=== PATIENT | female | born 1990 | race Caucasian/White ===

== ENCOUNTER → 2019-09-13 | Outpatient (CLI) | payer MEDICAID ==
--- NOTE | 2019-09-13 12:12 | US ---
EXAMINATION TYPE: US abdomen limited DATE OF EXAM: 09/13/2019 COMPARISON: NONE CLINICAL HISTORY: 29-year-old female K43.9 ventral hernia without obstruction or gangrene. TECHNIQUE: Targeted ultrasound examination at the patient's supraumbilical palpable site. FINDINGS: EXAM MEASUREMENTS: Bundle Sorter notes: Area seen disrupting abdominal wall muscle, superior and just to the right of the umbilicus measuring 2.5 x 2.2 x 0.9 cm, Neck = 0.6 cm. The echotexture is the same as the subcutaneou s adipose. IMPRESSION: A 2.5 x 2.2 x 0.9 cm ventral abdominal wall, omental fat-containing supraumbilical hernia with a narr ow, 6 mm wide neck.
== END | disposition home or self-care (01) ==
LOC: RADUSWWP 08:00
PROVIDERS: ATTEND Family Medicine
DX: K43.9 Ventral hernia without obstruction or gangrene (principal); K42.9 Umbilical hernia without obstruction or gangrene
CPT/HCPCS: 76705

== ENCOUNTER → 2019-09-15 | Outpatient (CLI) | payer MEDICAID ==
--- NOTE | 2019-09-15 12:33 | EST ---
EXERCISE STRESS DATE OF SERVICE: 09/15/2019 AGE: 29 SEX: Female HT: 64" WT: 156 pounds PROTOCOL: Jamel STAGE: IV DURATION OF EXERCISE: 10 minutes 20 seconds HEART RATE REST: 85 BLOOD PRESSURE REST: 105/80 MAXIMUM HEART RATE ACHIEVED: 180 MAXIMUM BLOOD PRESSURE: 144/70 85% MPHR: 163 100% MPHR: 192 METS: 11.9 INDICATIONS: History of syncope. CLINICAL INFORMATION: Baseline heart rate is 85 beats per minute. Baseline blood pressure 105/80 mmHg. Baseline 12-lead ECG shows normal sinus rhythm with normal cardiac intervals. Early repolarization abnormality. The patient exercised on Jamel protocol for 10 minutes 10 seconds achieving a peak heart rate of 180 beats per minute. Normal blood pressure response to exercise. There was no ECG evidence for ischemia. No arrhythmias were noted. IMPRESSION: Good exercise capacity. No ECG evidence for ischemia. No arrhythmias. MMODL / IJN: [id number] /
--- NOTE | 2019-09-15 13:01 | ECHOF ---
Referral Reason:R55 syncope MEASUREMENTS -------- HEIGHT: 162.6 cm WEIGHT: 70.8 kg BP: RVIDd: 2.1 cm (< 3.3) IVSd: 0.8 cm (0.6 - 1.1) LVIDd: 3.4 cm (3.9 - 5.3) LVPWd: 0.9 cm (0.6 - 1.1) IVSs: 1.1 cm LVIDs: 2.3 cm LVPWs: 1.5 cm LAESV Index (A-L): 10.05 ml/m Ao Diam: 2.8 cm (2.0 - 3.7) AV Cusp: 1.5 cm (1.5 - 2.6) LA Diam: 2.3 cm (2.7 - 3.8) MV EXCURSION: 13.536 mm (> 18.000) MV EF SLOPE: 52 mm/s (70 - 150) EPSS: 0.7 cm MV E Filiberto: 0.68 m/s MV DecT: 177 ms MV A Filiberto: 0.62 m/s MV E/A Ratio: 1.09 AR PHT: 366 ms RAP: 5.00 mmHg RVSP: 16.44 mmHg TAPSE: 21.87 mm FINDINGS -------- Sinus rhythm. This was a technically good study. The left ventricular size is normal. Left ventricular wall thickness is normal. Overall left vent ricular systolic function is normal with, an EF between 55 - 60 %. The diastolic filling pattern is normal for the age of the patient 6.40. The right ventricle is normal in size. The left atrial size is normal. Normal LA size by volume 22+/-6 ml/m2. The right atrial size is normal. The aortic valve is trileaflet and appears structurally normal. There is mild aortic regurgitation. The mitral valve is normal. There is trace mitral regurgitation. Trace tricuspid regurgitation present. Right ventricular systolic pressure is normal at < 35 mmHg. There is no pulmonic regurgitation present. The aortic root size is normal. Normal inferior vena cava with normal inspiratory collapse consistent with estimated right atrial pre ssure of 5 mmHg. There is no pericardial effusion. CONCLUSIONS -------- 1. Sinus rhythm. 2. This was a technically good study. 3. The left ventricular size is normal. 4. Left ventricular wall thickness is normal. 5. Overall left ventricular systolic function is normal with, an EF between 55 - 60 %. 6. The diastolic filling pattern is normal for the age of the patient 6.40 7. The right ventricle is normal in size. 8. The left atrial size is normal. 9. Normal LA size by volume 22+/-6 ml/m2. 10. The right atrial size is normal. 11. The aortic valve is trileaflet and appears structurally normal. 12. There is mild aortic regurgitation. 13. The mitral valve is normal. 14. There is trace mitral regurgitation. 15. Trace tricuspid regurgitation present. 16. Right ventricular systolic pressure is normal at < 35 mmHg. 17. There is no pulmonic regurgitation present. 18. The aortic root size is normal. 19. Normal inferior vena cava with normal inspiratory collapse consistent with estimated right atrial pressure of 5 mmHg. 20. There is no pericardial effusion. DAIRY PROCESSING EQUIPMENT OPERATOR: Bharati Knox RDCS
== END | disposition home or self-care (01) ==
LOC: RADNMMAIN 10:54
PROVIDERS: ATTEND Internal Medicine Interventional Cardiology
DX: I35.1 Nonrheumatic aortic (valve) insufficiency (principal); I49.1 Atrial premature depolarization; I49.3 Ventricular premature depolarization; R55 Syncope and collapse
CPT/HCPCS: 93017; 93225; 93226; 93306

== ENCOUNTER → 2020-01-17 | Day surgery (SDC) | payer MEDICAID ==
[2020-01-12 13:29] VITALS: BMI 26.7
[~2020-01-17] MED LIST: ACETAMINOPHEN TAB 500 MG TAB PO ONE; BUPIVACAINE (PF) 0.25% 30 ML VIAL SQ ONE; DEXAMETHASONE SOD PHOSPHATE 10 MG/ML 1 ML VIAL IV ONE; GLYCOPYRROLATE 0.2 MG/ML 2 ML VIAL ONE; HEPARIN SODIUM,PORCINE 5,000 UNIT/ML 1 ML VIAL SQ ONE; HYDROcodone/APAP 5-325MG 1 EACH TAB PO PRN; HYDROmorphone 0.5 MG/0.5 ML SYRINGE IVP PRN; KETOROLAC 30 MG/ML 1 ML VIAL ONE; LACTATED RINGERS 1,000 ML IV ONE; LACTATED RINGERS 1,000 ML IV SCH; LIDOCAINE 1% INJ 10MG/ML (20 ML MDV) ONE; MIDAZOLAM 2 MG/2 ML VIAL IVP ONE; MIDAZOLAM 2 MG/2 ML VIAL ONE; NALOXONE 0.4 MG/ML 1 ML VIAL IV PRN; NEOSTIGMINE 1 MG/ML 10 ML VIAL ONE; ONDANSETRON 4 MG/2 ML VIAL IVP ONE; PROPOFOL 10 MG/ML 20 ML VIAL IV ONE; ROCURONIUM BROMIDE 10 MG/ML 5 ML VIAL IV ONE; ROPIVACAINE 5 MG/ML 30 ML VIAL ONE; fentaNYL (PF) 50 MCG/ML 2 ML AMP ONE; oxyCODONE-APAP 5-325MG 1 EACH TAB ONE; oxyCODONE-APAP 5-325MG 1 EACH TAB PO ONE
[2020-01-17 10:25] LABS: Glucose,Whole Blood 93 mg/dL (75-99)
--- NOTE | 2020-01-17 12:23 | P.ANPRN ---
Procedure Note - Anesthesia - Nerve Block Performed Bilateral Transversus Abdominis Single Date of Procedure: 01/17/20 Procedure Start Time: 11:54 Procedure Stop Time: 12:07 Location of Patient: PreOp Indication: Acute Post-Operative Pain, Requested by Surgeon Sedation Type: Sedate with meaningful contact maintained Preparation: Sterile Prep Position: Supine Catheter: None Needle Types: On-Q Needle Gauge: 21 Ultrasound used to visualize needle placement: Yes Ultrasound used to observe medication spread: Yes Blood Aspirated: No Pain Paresthesia on Injection Noted: No Resistance on Injection: Normal Image Stored and Saved: Yes Events: Uneventful and Well Tolerated (ropivacaine 0.5% total of 30 mls)
--- NOTE | 2020-01-17 12:47 | P.GSHP ---
History of Present Illness H&P Date: 01/17/20 Chief Complaint: Incarcerated ventral and umbilical hernia 29-year-old female evaluated in October by video conference. Patient has complaints of a bulge above the umbilicus. Says it is at times bluish in color. Had an ultrasound showing a hernia there. 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 No nausea or vomiting. No change in bowel habits. No previous hernias. Past Medical History Past Medical History: No Reported History Additional Past Medical History / Comment(s): occasional hypoglycemia .,hypotension - states sometimes bp spikes and drops. , states having c onstipation and nausea History of Any Multi-Drug Resistant Organisms: None Reported Past Surgical History: No Surgical Hx Reported Additional Past Surgical History / Comment(s): wisdom teeth Past Anesthesia/Blood Transfusion Reactions: No Reported Reaction Past Psychological History: No Psychological Hx Reported Smoking Status: Never smoker Past Alcohol Use History: None Reported Past Drug Use History: None Reported - Past Family History Father Family Medical History: No Reported History Medications and Allergies Home Medications Medication Instructions Recorded Confirmed Type Docusate [Colace] 100 mg PO DAILY PRN 01/12/20 01/12/20 History Inulin/Chromium Picolinate [Fiber 1 each PO DAILY 01/12/20 01/12/20 History Gummies Chew] L.acidoph,Paracasei, B.lactis 1 each PO DAILY 01/12/20 01/12/20 History [Probiotic] Linzess (Unknown Dose) 1 tab PO DAILY PRN 01/12/20 01/12/20 History Sennosides [Senokot] 8.6 mg PO DAILY PRN 01/12/20 01/12/20 History Allergies Allergy/AdvReac Type Severity Reaction Status Date / Time No Known Allergies Allergy Verified 01/12/20 13:05 Surgical - Exam Vital Signs Temp Pulse Resp BP Pulse Ox 98 F 85 20 105/72 97 01/17/20 10:20 01/17/20 10:20 01/17/20 10:20 01/17/20 10:20 01/17/20 10:20 Physical exam: General: Well-developed, well-nourished HEENT: Normocephalic, sclerae nonicteric Abdomen: Nontender, nondistended incarcerated hernia supraumbilical and also umbilical Extremities: No edema Neuro: Alert and oriented Assessment and Plan (1) Ventral hernia Narrative/Plan: 29-year-old female with physical exam findings consistent with incarcerated ventral and umbilical hernia. Both relatively symptomatic. Will proceed with operative repair with mesh. Risks of bleeding, infection, recurrence, bladder and bowel injury, numbness, nerve injury were discussed with the patient. The patient understands and wishes to proceed. Current Visit: Yes Status: Acute Code(s): K43.9 - VENTRAL HERNIA WITHOUT OBSTRUCTION OR GANGRENE SNOMED Code(s): 346853775
[2020-01-17 14:25] VITALS: TEMP 97.9
--- NOTE | 2020-01-17 14:32 | P.OP ---
Date of Procedure: 01/17/20 Procedure(s) Performed: PREOPERATIVE DIAGNOSIS: Incarcerated ventral hernia and incarcerated umbilical hernia POSTOPERATIVE DIAGNOSIS: Same PROCEDURE: Incarcerated ventral and umbilical hernia repair with mesh SURGEON: Margret EBL: Minimal ANESTHESIA: Gen. COMPLICATIONS: None OPERATIVE PROCEDURE: Patient placed on the operating table in the supine position. Abdomen was prepped and draped in usual sterile fashion. A vertical incision was then made superior to the umbilicus. Dissection through the subcut aneous tissues took place using electrocautery. The patient had a ventral hernia present with a fascial defect measuring about 2 x 1.5 cm. This was present about 3 cm superior to the umbilical hernia which was small measuring less than 1 cm in diameter. Adjacent to the ventral hernia was a small less than 2 mm defect as well that was incorporated into our fascial closure. The pre-peroneal space was dissected using electrocautery and blunt dissection. We had adequate space at that point. The 6.4 cm ventral ex mesh was placed beneath the fascia and sutured in place using trans-fascial 0 Ethibond sutures. The umbilical defect was closed using [id number] 0 Vicryl sutures. The primary ventral hernia defect was then closed horizontally using 0 Ethibond mattress sutures in a vest over pants fashion. The folding edge was also sutured down using 0 Ethibond sutures. The umbilicus was sutured down to the underlying fascia using a 3-0 Vicryl suture. The subcutaneous tissues were closed using 3- 0 Vicryl sutures. The skin was closed using a running 4-0 Monocryl suture. Skin glue and sterile dressings were applied. DISPOSITION: Stable to recovery room
[2020-01-17 15:16] VITALS: RESP 17
[2020-01-17 15:20] VITALS: BP 118/61; PULSE 69
== END ==
LOC: OR 09:26
PROVIDERS: ATTEND Surgery
DX: K43.6 Other and unspecified ventral hernia with obstruction, without gangrene (principal); K42.0 Umbilical hernia with obstruction, without gangrene; Z98.818 Other dental procedure status; Z79.899 Other long term (current) drug therapy; E16.2 Hypoglycemia, unspecified; I49.8 Other specified cardiac arrhythmias; K59.09 Other constipation; Z81.1 Family history of alcohol abuse and dependence
CPT/HCPCS: 49561; 49568; 81025; 64488; 88302; C1781; J2250; J1644; J1100; J2710; J0690; J2405; J2001; J3010; J1885; J2795; J2704; J1170; 64486

== ENCOUNTER 2020-11-10 04:46 | Observation (INO) | payer MEDICAID ==
[2020-11-10] MEDS ORDERED: KETOROLAC 15 MG/ML 1 ML VIAL IVP STA (05:28)
[2020-11-10 05:29] LABS: Basophils % (A) 0 %; Eosinophils # (A) 0.2 k/uL (0-0.7); Eosinophils % (A) 2 %; HCT 41.7 % (34.0-46.0); HGB 14.5 gm/dL (11.4-16.0); Lymphocytes % (A) 39 %; MCH 29.1 pg (25.0-35.0); MCHC 34.7 g/dL (31.0-37.0); Monocytes # (A) 0.5 k/uL (0-1.0); Monocytes % (A) 6 %; Neutrophils # (A) 3.9 k/uL (1.3-7.7); Neutrophils % (A) 50 %; Platelet Count 273 k/uL (150-450); RBC 4.97 m/uL (3.80-5.40); WBC 7.7 k/uL (3.8-10.6)
[2020-11-10 05:39] LABS: ALT 12 U/L (4-34); AST 18 U/L (14-36); African American GFR (CKD) >90 (>60 ml/min/1.73 sqM); Albumin 4.9 g/dL (3.5-5.0); Alkaline Phosphatase 85 U/L (38-126); Amylase 80 U/L (30-110); Anion Gap 10 mmol/L; Blood Urea Nitrogen 14 mg/dL (7-17); Carbon Dioxide 25 mmol/L (22-30); Chloride 103 mmol/L (98-107); Glucose 96 mg/dL (74-99); Lipase 103 U/L (23-300); Non-African American GFR(CKD) >90 (>60 ml/min/1.73 sqM); Potassium 3.9 mmol/L (3.5-5.1); Sodium 138 mmol/L (137-145); Total Bilirubin 0.5 mg/dL (0.2-1.3); Total Protein 7.9 g/dL (6.3-8.2)
[2020-11-10 06:09] LABS: Appearance,Urine Clear (Clear); Bilirubin,Urine Negative (Negative); Blood,Urine Small (Negative); Color,Urine Yellow; Glucose,Urine (UA) Negative (Negative); Ketones,Urine Negative (Negative); Leukocyte Esterase,Urine Negative (Negative); Mucus,Urine Rare /hpf; Nitrite,Urine Negative (Negative); Protein,Urine Negative (Negative); RBC,Urine 3 /hpf (0-5); Specific Gravity,Urine 1.021 (1.001-1.035); Squamous Epithelial Cell,Urine 1 /hpf (0-4); Urobilinogen,Urine <2.0 mg/dL (<2.0); WBC,Urine <1 /hpf (0-5)
--- NOTE | 2020-11-10 06:49 | CT ---
EXAM: CT Abdomen and Pelvis Without Intravenous Contrast CLINICAL HISTORY: ITS.REASON CT Reason: right flank pain TECHNIQUE: Axial computed tomography images of the abdomen and pelvis without intravenous contrast. CTDI is 9.27 mGy and DLP is 525.5 mGy-cm. This CT exam was performed using one or more of the following dose reduction techniques: automated exposure control, adjustment of the mA and/or kV according to patient size, and/or use of iterative reconstruction technique. COMPARISON: No relevant prior studies available. FINDINGS: Lung bases: Unremarkable. No mass. No consolidation. ABDOMEN: Liver: Unremarkable. Gallbladder and bile ducts: Distended gallbladder with calcified gallstone in the gallbladder fundus. No ductal dilation. Pancreas: Unremarkable. No ductal dilation. Spleen: Unremarkable. No splenomegaly. Adrenals: Unremarkable. No mass. Kidneys and ureters: Unremarkable. No obstructing stones. No hydronephrosis. Stomach and bowel: Unremarkable. No obstruction. No mucosal thickening. PELVIS: Appendix: No findings to suggest acute appendicitis. Bladder: Unremarkable. No stones. Reproductive: Unremarkable as visualized. ABDOMEN and PELVIS: Intraperitoneal space: Unremarkable. No free air. No significant fluid collection. Bones/joints: No acute fracture. No dislocation. Soft tissues: Unremarkable. Vasculature: Unremarkable. No abdominal aortic aneurysm. Lymph nodes: Unremarkable. No enlarged lymph nodes. IMPRESSION: 1. Distended gallbladder with calcified gallstone in the gallbladder fundus. 2. No nephrolithiasis or urolithiasis. 3. Normal appendix.
--- NOTE | 2020-11-10 07:58 | ED ---
Abdominal Pain HPI - General Source: patient Mode of arrival: ambulatory - History of Present Illness Complaint: abdominal pain -: hour(s) Location: RUQ, RLQ, R flank Radiation: none Migration to: no migration Severity: severe Quality: sharp Consistency: constant Improves With: nothing Worsens With: nothing Associated Symptoms: nausea, vomiting <Niraj Sarah - Last Filed: 11/10/20 07:58> <Lon Lopez - Last Filed: 11/10/20 10:37> - General Chief Complaint: Abdominal Pain Stated Complaint: Right side pain Time Seen by Provider: 11/10/20 05:05 - Related Data Home Medications Medication Instructions Recorded Confirmed Acetaminophen Tab [Tylenol Tab] 1,000 mg PO TID PRN 11/10/20 11/10/20 Ibuprofen [Motrin Ib] 800 mg PO Q8H PRN 11/10/20 11/10/20 Magnesium Oxide [Magox 400] 400 mg PO DAILY PRN 11/10/20 11/10/20 Allergies Allergy/AdvReac Type Severity Reaction Status Date / Time No Known Allergies Allergy Verified 11/10/20 10:23 Review of Systems ROS Other: All systems not noted in ROS Statement are negative. Constitutional: Denies: fever, chills Respiratory: Denies: cough, dyspnea Cardiovascular: Denies: chest pain, palpitations, edema Gastrointestinal: Reports: abdominal pain, nausea, vomiting. Denies: diarrhea, constipation Genitourinary: Denies: dysuria, frequency, hematuria Musculoskeletal: Denies: back pain Skin: Denies: rash Neurological: Denies: headache, weakness <Niraj Sarah - Last Filed: 11/10/20 07:58> ROS Other: All systems not noted in ROS Statement are negative. <Lon Lpoez - Last Filed: 11/10/20 10:37> ROS Statement: Those systems with pertinent positive or pertinent negative responses have been documented in the HPI. Past Medical History Past Medical History: No Reported History Additional Past Medical History / Comment(s): occasional hypoglycemia .,hypotension - states sometimes bp spikes and drops. , states having constipation and nausea History of Any Multi-Drug Resistant Organisms: None Reported Past Surgical History: Hernia Repair Additional Past Surgical History / Comment(s): wisdom teeth Past Anesthesia/Blood Transfusion Reactions: No Reported Reaction Past Psychological History: No Psychological Hx Reported Smoking Status: Never smoker Past Alcohol Use History: None Reported Past Drug Use History: None Reported - Past Family History Father Family Medical History: No Reported History <TyrelNiraj - Last Filed: 11/10/20 07:58> General Exam General appearance: alert, in no apparent distress Head exam: Present: atraumatic, normocephalic Eye exam: Present: normal appearance. Absent: scleral icterus, conjunctival injection ENT exam: Present: normal oropharynx Respiratory exam: Present: normal lung sounds bilaterally. Absent: respiratory distress, wheezes, rales, rhonchi, stridor Cardiovascular Exam: Present: normal rhythm, tachycardia, normal heart sounds. Absent: systolic murmur, diastolic murmur, rubs, gallop GI/Abdominal exam: Present: soft, tenderness, guarding. Absent: distended, rebound, rigid, mass, pulsatile mass, hernia Extremities exam: Present: normal inspection, normal capillary refill. Absent: pedal edema, calf tenderness Back exam: Present: normal inspection. Absent: CVA tenderness (R), CVA tenderness (L) Neurological exam: Present: alert Skin exam: Present: warm, dry, intact, normal color. Absent: rash <Niraj Sarah - Last Filed: 11/10/20 07:58> Course Vital Signs 11/10/20 11/10/20 04:58 08:00 Temperature 97.4 F L Pulse Rate 111 H 83 Respiratory 19 18 Rate Blood Pressure 137/88 128/86 O2 Sat by Pulse 97 96 Oximetry Medical Decision Making - Lab Data Result diagrams: 11/10/20 05:15 11/10/20 05:15 <Niraj Sarah - Last Filed: 11/10/20 07:58> - Lab Data Result diagrams: 11/10/20 05:15 11/10/20 05:15 - Radiology Data Radiology results: report reviewed (Computed tomography scan of abdomen and pelvis shows distended gallbladder with calcified gallstones. Gallbladder ultrasound shows adherent calculus fundus of the gallbladder. Possible polyp. Gallbladder distended to upper limits of normal. No duct dilation or hydronephrosis.) <Lon Lopez - Last Filed: 11/10/20 10:37> - Medical Decision Making Patient reevaluated twice. Patient still having symptoms. Case discussed with Dr. Hanson, who will admit (Lon Lopez) - Lab Data Lab Results 11/10/20 11/10/20 11/10/20 Range/Units 05:15 05:15 05:59 WBC 7.7 (3.8-10.6) k/uL RBC 4.97 (3.80-5.40) m/uL Hgb 14.5 (11.4-16.0) gm/dL Hct 41.7 (34.0-46.0) % MCV 84.0 (80.0-100.0) fL MCH 29.1 (25.0-35.0) pg MCHC 34.7 (31.0-37.0) g/dL RDW 13.0 (11.5-15.5) % Plt Count 273 (150-450) k/uL MPV 8.0 Neutrophils % 50 % Lymphocytes % 39 % Monocytes % 6 % Eosinophils % 2 % Basophils % 0 % Neutrophils # 3.9 (1.3-7.7) k/uL Lymphocytes # 3.0 (1.0-4.8) k/uL Monocytes # 0.5 (0-1.0) k/uL Eosinophils # 0.2 (0-0.7) k/uL Basophils # 0.0 (0-0.2) k/uL Sodium 138 (137-145) mmol/L Potassium 3.9 (3.5-5.1) mmol/L Chloride 103 (98-107) mmol/L Carbon Dioxide 25 (22-30) mmol/L Anion Gap 10 mmol/L BUN 14 (7-17) mg/dL Creatinine 0.80 (0.52-1.04) mg/dL Est GFR (CKD-EPI)AfAm >90 (>60 ml/min/1.73 sqM) Est GFR (CKD-EPI)NonAf >90 (>60 ml/min/1.73 sqM) Glucose 96 (74-99) mg/dL POC Glucose (mg/dL) (75-99) mg/dL POC Glu Poultry Breeder ID Calcium 10.0 (8.4-10.2) mg/dL Total Bilirubin 0.5 (0.2-1.3) mg/dL AST 18 (14-36) U/L ALT 12 (4-34) U/L Alkaline Phosphatase 85 (38-126) U/L Total Protein 7.9 (6.3-8.2) g/dL Albumin 4.9 (3.5-5.0) g/dL Amylase 80 (30-110) U/L Lipase 103 (23-300) U/L Urine Color Yellow Urine Appearance Clear (Clear) Urine pH 6.0 (5.0-8.0) Ur Specific [place] 1.021 (1.001-1.035) Urine Protein Negative (Negative) Urine Glucose (UA) Negative (Negative) Urine Ketones Negative (Negative) Urine Blood Small H (Negative) Urine Nitrite Negative (Negative) Urine Bilirubin Negative (Negative) Urine Urobilinogen <2.0 (<2.0) mg/dL Ur Leukocyte Esterase Negative (Negative) Urine RBC 3 (0-5) /hpf Urine WBC <1 (0-5) /hpf Ur Squamous Epith Cells 1 (0-4) /hpf Urine Mucus Rare H (None) /hpf Urine HCG, Qual (Not Detectd) 11/10/20 11/10/20 Range/Units 05:59 10:29 WBC (3.8-10.6) k/uL RBC (3.80-5.40) m/uL Hgb (11.4-16.0) gm/dL Hct (34.0-46.0) % MCV (80.0-100.0) fL MCH (25.0-35.0) pg MCHC (31.0-37.0) g/dL RDW (11.5-15.5) % Plt Count (150-450) k/uL MPV Neutrophils % % Lymphocytes % % Monocytes % % Eosinophils % % Basophils % % Neutrophils # (1.3-7.7) k/uL Lymphocytes # (1.0-4.8) k/uL Monocytes # (0-1.0) k/uL Eosinophils # (0-0.7) k/uL Basophils # (0-0.2) k/uL Sodium (137-145) mmol/L Potassium (3.5-5.1) mmol/L Chloride (98-107) mmol/L Carbon Dioxide (22-30) mmol/L Anion Gap mmol/L BUN (7-17) mg/dL Creatinine (0.52-1.04) mg/dL Est GFR (CKD-EPI)AfAm (>60 ml/min/1.73 sqM) Est GFR (CKD-EPI)NonAf (>60 ml/min/1.73 sqM) Glucose (74-99) mg/dL POC Glucose (mg/dL) 132 H (75-99) mg/dL POC Glu Poultry Breeder ID Erin Rene Calcium (8.4-10.2) mg/dL Total Bilirubin (0.2-1.3) mg/dL AST (14-36) U/L ALT (4-34) U/L Alkaline Phosphatase (38-126) U/L Total Protein (6.3-8.2) g/dL Albumin (3.5-5.0) g/dL Amylase (30-110) U/L Lipase (23-300) U/L Urine Color Urine Appearance (Clear) Urine pH (5.0-8.0) Ur Specific [place] (1.001-1.035) Urine Protein (Negative) Urine Glucose (UA) (Negative) Urine Ketones (Negative) Urine Blood (Negative) Urine Nitrite (Negative) Urine Bilirubin (Negative) Urine Urobilinogen (<2.0) mg/dL Ur Leukocyte Esterase (Negative) Urine RBC (0-5) /hpf Urine WBC (0-5) /hpf Ur Squamous Epith Cells (0-4) /hpf Urine Mucus (None) /hpf Urine HCG, Qual Not Detected (Not Detectd) Disposition <Niraj Sarah - Last Filed: 11/10/20 07:58> Is patient prescribed a controlled substance at d/c from ED?: No Decision Time: 10:12 <Lon Lopez - Last Filed: 11/10/20 10:37> Clinical Impression: Cholelithiasis Disposition: ADMITTED IP TO THIS [facility] Referrals: Jarvis Rodríguez MD [Primary Care Provider] - 1-2 days
[2020-11-10] MEDS ORDERED: HYDROmorphone 0.5 MG/0.5 ML SYRINGE IVP STA ×2 (07:59→09:08)
--- NOTE | 2020-11-10 08:13 | US ---
EXAMINATION TYPE: US abdomen limited DATE OF EXAM: 11/10/2020 COMPARISON: Correlation CT exam dated CLINICAL HISTORY: 30-year-old female with, attention RUQ. TECHNIQUE: Multiple sonographic images of the right upper quadrant are obtained. FINDINGS: EXAM MEASUREMENTS: Liver Length: 15.6 cm Gallbladder Wall: 0.1 cm CBD: 0.4 cm Right Kidney: 10.1 x 5.2 x 4.3 cm Pancreas: Only portions of the pancreatic head and neck are visualized. Most of the body and tail ar e secured by bowel gas shadowing. Liver: wnl Gallbladder: Calcified lesion at fundal region= 0.9 x 0.4 x 0.5 cm. Borderline distended. No wall th ickening or surrounding fluid. Evidence for sonographic Patel's sign: neg CBD: wnl Right Kidney: No hydronephrosis. IMPRESSION: 1. Suspect a 9 mm adherent calculus at the fundus of the gallbladder. A polyp is considered less like ly given calcification on CT. Three-month follow-up ultrasound recommended as a precautionary measure . 2. The gallbladder is distended to the upper limits of normal but shows no ancillary findings of acut e cholecystitis. Findings likely related to fasting state. Clinically correlate. 3. No biliary ductal dilatation or hydronephrosis on the right.
[2020-11-10] MEDS ORDERED: HYDROmorphone 0.5 MG/0.5 ML SYRINGE IVP PRN (10:14)
[2020-11-10] MEDS ORDERED: NALOXONE 0.4 MG/ML 1 ML VIAL IV PRN (10:14)
[2020-11-10 10:30] LABS: Glucose,Whole Blood 132 mg/dL (75-99)
--- NOTE | 2020-11-10 10:49 | P.GSHP ---
History of Present Illness H&P Date: 11/10/20 Chief Complaint: Abdominal pain Patient is a 30-year-old female who began having abdominal pain last night. Right upper quadrant radiating through to the back. It was still very severe this morning so she came into the emergency department. Work-up was suggestive of acute biliary colic. The patient has never had any pain like this in the past. Denies fevers or low she has had some chills. Some nausea. No vomiting. Denies jaundice, tea colored urine or acholic stool. There is a strong family history of biliary disease in both her mother and sister. - Review of Systems All systems: negative Past Medical History Past Medical History: No Reported History Additional Past Medical History / Comment(s): occasional hypoglycemia .,hypotension - states sometimes bp spikes and drops. , states having constipation and nausea History of Any Multi-Drug Resistant Organisms: None Reported Past Surgical History: Hernia Repair Additional Past Surgical History / Comment(s): wisdom teeth Past Anesthesia/Blood Transfusion Reactions: No Reported Reaction Past Psychological History: No Psychological Hx Reported Smoking Status: Never smoker Past Alcohol Use History: None Reported Past Drug Use History: None Reported - Past Family History Father Family Medical History: No Reported History Medications and Allergies Home Medications Medication Instructions Recorded Confirmed Type Acetaminophen Tab [Tylenol Tab] 1,000 mg PO TID PRN 11/10/20 11/10/20 History Ibuprofen [Motrin Ib] 800 mg PO Q8H PRN 11/10/20 11/10/20 History Magnesium Oxide [Magox 400] 400 mg PO DAILY PRN 11/10/20 11/10/20 History Allergies Allergy/AdvReac Type Severity Reaction Status Date / Time No Known Allergies Allergy Verified 11/10/20 10:23 Surgical - Exam Osteopathic Statement: *. No significant issues noted on an osteopathic structural exam other than those noted in the History and Physical/Consult. Vital Signs Temp Pulse Resp BP Pulse Ox 97.4 F L 111 H 19 137/88 97 11/10/20 04:58 11/10/20 04:58 11/10/20 04:58 11/10/20 04:58 11/10/20 04:58 - General appears uncomfortable well developed, well nourished - Eyes normal ocular movement - Neck trachea midline - Respiratory clear to auscultation - Cardiovascular Rhythm: regular - Abdomen Abdomen: soft, tender (Epigastric and right upper quadrant with mild voluntary guarding), no rigid, no rebound, no distended - Psychiatric oriented to time, oriented to person, oriented to place, speech is normal, memory intact Results - Labs 11/10/20 05:15 11/10/20 05:15 Abnormal Lab Results - Last 24 Hours (Table) 11/10/20 11/10/20 Range/Units 05:59 10:29 POC Glucose (mg/dL) 132 H (75-99) mg/dL Urine Blood Small H (Negative) Urine Mucus Rare H (None) /hpf Diabetes panel 11/10/20 Range/Units 05:15 Sodium 138 (137-145) mmol/L Potassium 3.9 (3.5-5.1) mmol/L Chloride 103 (98-107) mmol/L Carbon Dioxide 25 (22-30) mmol/L BUN 14 (7-17) mg/dL Creatinine 0.80 (0.52-1.04) mg/dL Glucose 96 (74-99) mg/dL Calcium 10.0 (8.4-10.2) mg/dL AST 18 (14-36) U/L ALT 12 (4-34) U/L Alkaline Phosphatase 85 (38-126) U/L Total Protein 7.9 (6.3-8.2) g/dL Albumin 4.9 (3.5-5.0) g/dL Calcium panel 11/10/20 Range/Units 05:15 Calcium 10.0 (8.4-10.2) mg/dL Albumin 4.9 (3.5-5.0) g/dL Pituitary panel 11/10/20 Range/Units 05:15 Sodium 138 (137-145) mmol/L Potassium 3.9 (3.5-5.1) mmol/L Chloride 103 (98-107) mmol/L Carbon Dioxide 25 (22-30) mmol/L BUN 14 (7-17) mg/dL Creatinine 0.80 (0.52-1.04) mg/dL Glucose 96 (74-99) mg/dL Calcium 10.0 (8.4-10.2) mg/dL Adrenal panel 11/10/20 Range/Units 05:15 Sodium 138 (137-145) mmol/L Potassium 3.9 (3.5-5.1) mmol/L Chloride 103 (98-107) mmol/L Carbon Dioxide 25 (22-30) mmol/L BUN 14 (7-17) mg/dL Creatinine 0.80 (0.52-1.04) mg/dL Glucose 96 (74-99) mg/dL Calcium 10.0 (8.4-10.2) mg/dL Total Bilirubin 0.5 (0.2-1.3) mg/dL AST 18 (14-36) U/L ALT 12 (4-34) U/L Alkaline Phosphatase 85 (38-126) U/L Total Protein 7.9 (6.3-8.2) g/dL Albumin 4.9 (3.5-5.0) g/dL - Imaging CT scan - abdomen: report reviewed US - abdomen: report reviewed Assessment and Plan (1) Biliary colic Current Visit: Yes Status: Acute Code(s): K80.50 - CALCULUS OF BILE DUCT W/O CHOLANGITIS OR CHOLECYST W/O OBST SNOMED Code(s): 76682454 (2) Cholelithiasis Current Visit: Yes Status: Acute Code(s): K80.20 - CALCULUS OF GALLBLADDER W/O CHOLECYSTITIS W/O OBSTRUCTION SNOMED Code(s): 903084285 Plan: Since she is still having pain after pain medication, I do recommend laparoscopic cholecystectomy. The procedure, risk and complications were discussed. Questions were encouraged and answered. We will need to avoid the immediate periumbilical area due to previous hernia repair. Since there is no evidence of acute cholecystitis, if she is feeling well after surgery and tolerating a diet she will be discharged later today. Patient is agreeable
[2020-11-10] MEDS ORDERED: ONDANSETRON 4 MG/2 ML VIAL IVP STA (11:19)
[2020-11-10] MEDS ORDERED: IV FLUID CONTINUATION 1,000 ML IV ONE (12:50)
[2020-11-10] MEDS ORDERED: fentaNYL (PF) 50 MCG/ML 2 ML AMP ONE (13:36)
[2020-11-10] MEDS ORDERED: KETOROLAC 15 MG/ML 1 ML VIAL ONE (13:36)
[2020-11-10] MEDS ORDERED: LIDOCAINE 1% INJ 10MG/ML (20 ML MDV) ONE (13:36)
[2020-11-10] MEDS ORDERED: ROCURONIUM 10 MG/ML (5 ML VIAL) IV ONE (13:36)
[2020-11-10] MEDS ORDERED: GLYCOPYRROLATE 0.2 MG/ML 2 ML VIAL ONE (13:36)
[2020-11-10] MEDS ORDERED: SUCCINYLCHOLINE CHLORIDE 100 MG/5 ML SYR IV ONE (13:36)
[2020-11-10] MEDS ORDERED: NEOSTIGMINE 1 MG/ML 10 ML VIAL ONE (13:36)
[2020-11-10] MEDS ORDERED: PROPOFOL 10 MG/ML 20 ML VIAL IV ONE (13:36)
[2020-11-10] MEDS ORDERED: PHENYLEPHRINE-0.9% NACL SYG 1,000 MCG/10 ML SYRINGE ONE (13:36)
[2020-11-10] MEDS ORDERED: MIDAZOLAM 2 MG/2 ML VIAL ONE (13:36)
[2020-11-10] MEDS ORDERED: DEXAMETHASONE SOD PHOSPHATE 4 MG/ML 1 ML VIAL IVP ONE (13:39)
[2020-11-10] MEDS ORDERED: LACTATED RINGERS 1,000 ML IV ONE (13:55)
[2020-11-10] MEDS ORDERED: LIDOCAINE 1%-EPI 1:100,000 20 ML VIAL SQ ONE ×2 (14:02)
[2020-11-10] MEDS ORDERED: BUPIVACAINE (PF) 0.5% 30 ML VIAL SQ ONE ×2 (14:02)
--- NOTE | 2020-11-10 14:45 | P.OP ---
Date of Procedure: 11/10/20 Preoperative Diagnosis: Cholelithiasis, biliary colic Postoperative Diagnosis: Cholelithiasis, biliary colic Procedure(s) Performed: Laparoscopic cholecystectomy Anesthesia: JOVI Surgeon: Nory Barraza Estimated Blood Loss (ml): 5 Pathology: other (Gallbladder) Indications for Procedure: The patient presented to the emergency department with abdominal pain. She was worked up and found to have cholelithiasis. The pain persisted even with pain medication so recommendation was for laparoscopic cholecystectomy Description of Procedure: The patient is taken to the operative suite where she is prepped and draped in the usual sterile manner under a general endotracheal anesthetic. An infraumbilical incision was made several centimeters inferior to the umbilicus due to prior hernia surgery. The fascia was grasped and incised. The peritoneum was grasped and incised. A finger sweep was carried out. A balloon trocar was inserted and pneumoperitoneum was established with CO2 gas. Sites were chosen for accessory trochars and these were placed through small skin incisions. The liver, diaphragm, large and small bowel were grossly normal where they were seen. The gallbladder is then grasped and retracted superiorly. Lindsey's pouch is identified, it is grasped and retracted laterally. The cystic artery and cystic duct are dissected free. They're triply clipped and cut. The gallbladder is dissected free from the liver bed. Small bleeding points are controlled with electrocautery. The gallbladder is removed through the umbilical port site. The liver bed is reexamined and noted to be hemostatic. The pneumoperitoneum was released. The trochars were removed. The fascia under the umbilicus was closed with 0 Vicryl. The skin incisions were closed with 4-0 Vicryl in a subcuticular manner. Steri-Strips and dressings were applied. She tolerated the procedure without difficulty and was taken to recovery room in satisfactory condition. According to or personnel, all counts were correct. Plan - Discharge Summary Discharge Rx Participant: No New Discharge Prescriptions: New HYDROcodone/APAP 5-325MG [[place] 5-325] 1 - 2 tab PO Q4H PRN #15 tab PRN Reason: Pain No Action Magnesium Oxide [Magox 400] 400 mg PO DAILY PRN PRN Reason: CRAMPS Ibuprofen [Motrin Ib] 800 mg PO Q8H PRN PRN Reason: Pain Acetaminophen Tab [Tylenol Tab] 1,000 mg PO TID PRN PRN Reason: Pain Discharge Medication List Acetaminophen Tab [Tylenol Tab] 1,000 mg PO TID PRN 11/10/20 [History] HYDROcodone/APAP 5-325MG [[place] 5-325] 1 - 2 tab PO Q4H PRN #15 tab 11/10/20 [Rx] Ibuprofen [Motrin Ib] 800 mg PO Q8H PRN 11/10/20 [History] Magnesium Oxide [Magox 400] 400 mg PO DAILY PRN 11/10/20 [History] Follow up Appointment(s)/Referral(s): Jarvis Rodríguez MD [Primary Care Provider] - 1-2 days Nory Barraza DO [Doctor of Osteopathic Medicine] - 2 Weeks Activity/Diet/Wound Care/Special Instructions: Ice to the incision for 24-48 hours. The dressings may be removed Friday then you may shower. No tub baths or swimming for 1 week. Expect some bruising near the bellybutton incision. Low-fat diet. No driving while taking pain medication. He may take Tylenol or Motrin instead of the pain pills. Little tapes (Steri-Strips) may be removed in 1 week. Call if questions or concerns Discharge Disposition: HOME SELF-CARE
[2020-11-10] MEDS ORDERED: HYDROmorphone 0.5 MG/0.5 ML SYRINGE IVP ONE ×2 (15:15→15:32)
[2020-11-10] MEDS: SODIUM CHLORIDE 0.9% 1,000 ML IV SCH (16:11)
[2020-11-10] MEDS: ONDANSETRON 4 MG/2 ML VIAL IVP PRN ×2 (17:27→23:15)
[2020-11-10] MEDS: HYDROmorphone 1 MG/ML 1 ML SYRINGE IVP PRN ×2 (18:28→21:19)
[2020-11-11] MEDS: HYDROmorphone 1 MG/ML 1 ML SYRINGE IVP PRN ×3 (00:02→06:22)
[2020-11-11] MEDS: SODIUM CHLORIDE 0.9% 1,000 ML IV SCH ×2 (00:04→04:40)
[2020-11-11 05:58] VITALS: BP 103/67; PULSE 91; RESP 16; TEMP 98.1
[2020-11-11 06:38] LABS: Basophils % (A) 0 %; Eosinophils % (A) 0 %; HCT 38.3 % (34.0-46.0); HGB 12.7 gm/dL (11.4-16.0); Lymphocytes # (A) 1.4 k/uL (1.0-4.8); Lymphocytes % (A) 14 %; MCH 28.5 pg (25.0-35.0); MCHC 33.3 g/dL (31.0-37.0); MCV 85.6 fL (80.0-100.0); Mean Platelet Volume 8.3; Monocytes # (A) 0.6 k/uL (0-1.0); Monocytes % (A) 6 %; Neutrophils # (A) 7.7 k/uL (1.3-7.7); Neutrophils % (A) 79 %; Platelet Count 259 k/uL (150-450); RBC 4.47 m/uL (3.80-5.40); RDW 13.3 % (11.5-15.5); WBC 9.8 k/uL (3.8-10.6)
[2020-11-11] MEDS ORDERED: PANTOPRAZOLE 40 MG/10 ML VIAL IV SCH (09:00)
[2020-11-11 09:14] LABS: African American GFR (CKD) 142.8 (60.0-200.0); Albumin 4.5 g/dL (3.80-4.90); Albumin/Globulin Ratio 2.37 (1.60-3.17); Anion Gap 7.7 mmol/L (4.00-12.00); BUN/Creat Ratio 13.33 Ratio (12.00-20.00); Calcium 9.2 mg/dL (8.7-10.3); Carbon Dioxide 25.3 mmol/L (21.6-31.8); Globulin 1.9 g/dL (1.6-3.3); Non-African American GFR(CKD) 123.2 (60.0-200.0); Potassium 4.3 mmol/L (3.5-5.5); Total Bilirubin 0.8 mg/dL (0.3-1.2); Total Protein 6.4 g/dL (6.2-8.2)
== END 2020-11-11 09:39 | disposition home or self-care (01) ==
LOC: EC 04:46 → 1SOBS 10:15 → 5NMEDONC 14:16
PROVIDERS: ADMIT Surgery; ATTEND Surgery
DX: K80.20 Calculus of gallbladder without cholecystitis without obstruction (principal); K80.50 Calculus of bile duct without cholangitis or cholecystitis without obstruction; K59.00 Constipation, unspecified; Z20.822 Contact with and (suspected) exposure to COVID-19; Z98.890 Other specified postprocedural states; Z83.79 Family history of other diseases of the digestive system
CPT/HCPCS: 96376; 96374; 96375; 99285; 36415; 88304; 80053 ×2; 82150; 83690; 85025 ×2; 81001; 81025; 87635; 76705; 74176; 47562; G0378 ×2; J2250; J1100; J2710; J0690; J2405; J2001; J3010; J1170 ×3; J1885; J2370; J0330; J2704

== ENCOUNTER 2021-04-17 10:51 | Day surgery (SDC) | payer MEDICAID ==
[2021-04-12 15:25] VITALS: BMI 27.3
[~2021-04-17 10:51] MED LIST changes: -ACETAMINOPHEN TAB 500 MG TAB PO ONE; -BUPIVACAINE (PF) 0.25% 30 ML VIAL SQ ONE; -DEXAMETHASONE SOD PHOSPHATE 10 MG/ML 1 ML VIAL IV ONE; -GLYCOPYRROLATE 0.2 MG/ML 2 ML VIAL ONE; -HEPARIN SODIUM,PORCINE 5,000 UNIT/ML 1 ML VIAL SQ ONE; -HYDROcodone/APAP 5-325MG 1 EACH TAB PO PRN; -HYDROmorphone 0.5 MG/0.5 ML SYRINGE IVP PRN; -KETOROLAC 30 MG/ML 1 ML VIAL ONE; -LACTATED RINGERS 1,000 ML IV ONE; -LACTATED RINGERS 1,000 ML IV SCH; -LIDOCAINE 1% INJ 10MG/ML (20 ML MDV) ONE; -MIDAZOLAM 2 MG/2 ML VIAL IVP ONE; -MIDAZOLAM 2 MG/2 ML VIAL ONE; -NALOXONE 0.4 MG/ML 1 ML VIAL IV PRN; -NEOSTIGMINE 1 MG/ML 10 ML VIAL ONE; -ONDANSETRON 4 MG/2 ML VIAL IVP ONE; -PROPOFOL 10 MG/ML 20 ML VIAL IV ONE; -ROCURONIUM BROMIDE 10 MG/ML 5 ML VIAL IV ONE; -ROPIVACAINE 5 MG/ML 30 ML VIAL ONE; +SODIUM CHLORIDE 0.9% 1,000 ML IV SCH; -fentaNYL (PF) 50 MCG/ML 2 ML AMP ONE; -oxyCODONE-APAP 5-325MG 1 EACH TAB ONE; -oxyCODONE-APAP 5-325MG 1 EACH TAB PO ONE
[2021-04-17 11:23] VITALS: RESP 18; TEMP 98.3
[2021-04-17 14:14] VITALS: BP 110/62; PULSE 80
--- NOTE | 2021-04-17 18:34 | P.EPPROC ---
- EP Procedure Note Electrophysiology Procedure Note: Diagnosis Recurrent dizzy spells Twelve-lead EKG Sinus rhythm normal TX narrow QRS normal ST segments Tilt table test per protocol Baseline blood pressure 103/64 mmHg, Baseline heart rate 73 beats a minute sinus rhythm Patient was tilted upright at an angle of 70 per protocol her blood pressure remained stable. However there was a mild increase in her heart rate. In the first 10 minutes a heart rate increased to the high 90s and low 100s Heart rate remained elevated in the high 90s for the duration of the procedure and when she is laid supine a blood pressure gradually came down to 83 beats a minute No drop in blood pressure at any point time Impression Orthostatic intolerance Normal twelve-lead EKG
== END 2021-04-17 14:20 | disposition home or self-care (01) ==
LOC: CATHEP 10:51
PROVIDERS: ATTEND Internal Medicine Clinical Cardiac Electrophysiology
DX: R42 Dizziness and giddiness (principal)
CPT/HCPCS: 81025; 93660

== ENCOUNTER → 2021-04-17 | Outpatient (CLI) | payer MEDICAID ==
--- NOTE | 2021-04-26 12:27 | P.CEMON ---
7 Day Event monitor note: Patient wore an event monitor for 7 days from 04/17/2021 until 04/24/2021 Findings: Patient's baseline heart rate was normal sinus rhythm. There were no signficant atrial fibrillation, atrial flutter, or ventricular tachycardia episodes. There were no significant pauses greater than 2 seconds. There were a total of 191 patient activated and automatically captured events noted. Symptoms occasionally were not specified however predominantly racing heartbeat and dizziness and lightheadedness all corresponded with normal sinus rhythm, sinus tachycardia. There were no PVCs, ventricular ectopy noted. Conclusions: Relatively normal event monitor with only sinus rhythm noted. Majority of patient's symptoms corresponding with sinus tachycardia.
== END | disposition home or self-care (01) ==
LOC: RADECHMAIN 10:48
PROVIDERS: ATTEND Internal Medicine Interventional Cardiology
DX: R00.0 Tachycardia, unspecified (principal)
CPT/HCPCS: 93270

== ENCOUNTER 2021-10-26 14:59 | Emergency (ER) | payer MEDICAID ==
[2021-10-26 16:21] VITALS: RESP 16
[2021-10-26] MEDS ORDERED: SODIUM CHLORIDE 0.9% 1,000 ML IV ONE (16:26)
[2021-10-26 16:40] LABS: Basophils % (A) 0 %; Eosinophils # (A) 0.1 k/uL (0-0.7); Eosinophils % (A) 1 %; HCT 44.1 % (34.0-46.0); HGB 14.7 gm/dL (11.4-16.0); Lymphocytes # (A) 2.2 k/uL (1.0-4.8); Lymphocytes % (A) 19 %; MCH 28.7 pg (25.0-35.0); MCHC 33.4 g/dL (31.0-37.0); MCV 85.9 fL (80.0-100.0); Monocytes # (A) 0.7 k/uL (0-1.0); Monocytes % (A) 6 %; Neutrophils # (A) 8.3 k/uL (1.3-7.7); Neutrophils % (A) 72 %; Platelet Count 385 k/uL (150-450); RBC 5.13 m/uL (3.80-5.40); RDW 13.6 % (11.5-15.5); WBC 11.5 k/uL (3.8-10.6)
[2021-10-26 16:43] LABS: ALT 19 U/L (4-34); AST 28 U/L (14-36); African American GFR (CKD) >90 (>60 ml/min/1.73 sqM); Albumin 5.1 g/dL (3.5-5.0); Alkaline Phosphatase 71 U/L (38-126); Anion Gap 15 mmol/L; Blood Urea Nitrogen 13 mg/dL (7-17); Calcium 9.6 mg/dL (8.4-10.2); Carbon Dioxide 19 mmol/L (22-30); Chloride 106 mmol/L (98-107); Glucose 99 mg/dL (74-99); Non-African American GFR(CKD) >90 (>60 ml/min/1.73 sqM); Potassium 4.2 mmol/L (3.5-5.1); Sodium 140 mmol/L (137-145); Total Bilirubin 0.8 mg/dL (0.2-1.3); Total Protein 8.7 g/dL (6.3-8.2)
--- NOTE | 2021-10-26 16:44 | XR ---
EXAMINATION TYPE: XR chest 2V DATE OF EXAM: 10/26/2021 COMPARISON: None HISTORY: Chest pain TECHNIQUE: 2 views FINDINGS: Heart and mediastinum are normal. Lungs are clear. Diaphragm is normal. Bony thorax is inta ct IMPRESSION: Normal chest.
[2021-10-26 16:47] LABS: Partial Thromboplastin Time 28.2 sec (22.0-30.0); Prothrombin Time 10.5 sec (9.0-12.0)
[2021-10-26 17:34] VITALS: BP 103/71
--- NOTE | 2021-10-26 17:45 | ED ---
General Adult HPI - General Chief complaint: Chest Pain Stated complaint: Chest Pain/High HR Time Seen by Provider: 10/26/21 15:51 Source: patient Mode of arrival: ambulatory Limitations: no limitations - History of Present Illness Initial comments: Patient is a 31-year-old female presenting with chief complaint of elevated heart rate. Patient has past medical history of POTS. Patient states that throughout the last day when she has started heart rate is elevated to the 140s to 150s, without resolution. Patient is currently on antibiotics to treat a sinus infection that has been going on for about 1 week, she is on day 3 of treatment. Patient complains that she has no experienced any relief after 3 days of treatment. Patient takes salt pills for by mouth TS, she is currently taking Augmentin, certrizine, and Flonase. Patient admits to some chest discomfort and hand trembling. Denies shortness of breath, fever, chills, nausea, vomiting, abdominal pain, diarrhea, constipation, sore throat, cough, ear pain, weakness. - Related Data Home Medications Medication Instructions Recorded Confirmed Elagolix Sodium [Orilissa] 200 mg PO BID 04/12/21 04/17/21 Amoxicillin/Potassium Clav 1 tab PO BID 10/26/21 10/26/21 [Augmentin 875-125 Tablet] Cetirizine HCl 10 mg PO HS 10/26/21 10/26/21 Fluticasone Nasal [place] [Flonase 2 spray EA NOSTRIL HS 10/26/21 10/26/21 Nasal [place]] Ondansetron Odt [Zofran Odt] 8 mg PO DAILY 10/26/21 10/26/21 Ondansetron Odt [Zofran Odt] 8 mg PO DAILY PRN 10/26/21 10/26/21 Allergies Allergy/AdvReac Type Severity Reaction Status Date / Time No Known Allergies Allergy Verified 10/26/21 18:02 Review of Systems ROS Statement: Those systems with pertinent positive or pertinent negative responses have been documented in the HPI. ROS Other: All systems not noted in ROS Statement are negative. Past Medical History Past Medical History: Skin Disorder, Syncope Additional Past Medical History / Comment(s): Hypoglycemia .,endometriosis., POTS., states heart palpitations ,dizziness and hx passing out., See Cardiology H & P. History of Any Multi-Drug Resistant Organisms: None Reported Past Surgical History: Cholecystectomy, Hernia Repair Additional Past Surgical History / Comment(s): Ventral/umbilical hernia repair, Hx Tilt table test. Past Anesthesia/Blood Transfusion Reactions: Previous Problems w/ Anesthesia, Postoperative Nausea & Vomiting (PONV) Past Psychological History: No Psychological Hx Reported Smoking Status: Never smoker Past Alcohol Use History: Rare Past Drug Use History: None Reported - Past Family History Father Family Medical History: No Reported History Additional Family Medical History / Comment(s): Pt has limited contact with her father. She knows he is an alcoholic. Mother Additional Family Medical History / Comment(s): Mother is . Mother had ETOH abuse and used cocaine and occasionally heroin. General Exam Limitations: no limitations General appearance: alert, in no apparent distress Head exam: Present: atraumatic, normocephalic, normal inspection Eye exam: Present: normal appearance, PERRL, EOMI. Absent: scleral icterus, conjunctival injection, periorbital swelling Neck exam: Present: normal inspection Respiratory exam: Present: normal lung sounds bilaterally. Absent: respiratory distress, wheezes, rales, rhonchi, stridor Cardiovascular Exam: Present: normal rhythm, tachycardia, normal heart sounds. Absent: regular rate, systolic murmur, diastolic murmur, rubs, gallop, clicks Neurological exam: Present: alert, oriented X3, CN II-XII intact Psychiatric exam: Present: normal affect, normal mood Skin exam: Present: warm, dry, intact, normal color. Absent: rash Course Vital Signs 10/26/21 10/26/21 10/26/21 15:17 16:17 17:33 Temperature 97.1 F L Pulse Rate 121 H 118 H 90 Respiratory 18 16 16 Rate Blood Pressure 116/78 114/74 103/71 O2 Sat by Pulse 94 L 100 100 Oximetry - Reevaluation(s) Reevaluation #1: On reassessment patient has received one third of her 1 L fluid bolus, patient reports feeling much better at this time 10/26/21 18:13 EKG Findings - EKG Comments: EKG Findings:: Sinus tachycardia. Rate of 121. CT interval of 133. QTC of 278. He shows S1 Q3 T3 pattern. This EKG was also interpreted by Dr. Irizarry Medical Decision Making - Medical Decision Making Patient is a 31-year-old female with past medical history of PE OTS presenting with chief complaint of elevated heart rate. Patient states that over the last day when standing her heart rate has maintained 140-150 bpm. Patient regularly takes salt pills and electrolyte solution for her condition. On examination sinus tachycardia, 120 bpm. Patient appears anxious. EKG is remarkable for sinus tachycardia, S1 Q3 T3 pattern noted. CBC shows leukocytosis with WBC of 11.5, likely due to recurrent sinus infection. D-dimer is negative. Troponin is negative. Chest x-ray is unremarkable. Patient was given 1 L normal saline fluid bolus, patient reports feeling much better after receiving the bolus. Her heart rate has stabilized to the 80s while resting and 120s while standing which is typical for her baseline. Follow-up with PCP in one to 2 days. Report back to ER with any worsening symptoms. Educated the patient on return parameters alarm symptoms. Answered all questions. Patient conveyed verbal understanding and agreed to the plan. I discussed this case with my attending Dr. Irizarry - Lab Data Result diagrams: 10/26/21 16:15 10/26/21 16:15 Lab Results 10/26/21 10/26/21 10/26/21 Range/Units 16:15 16:15 16:15 WBC 11.5 H (3.8-10.6) k/uL RBC 5.13 (3.80-5.40) m/uL Hgb 14.7 (11.4-16.0) gm/dL Hct 44.1 (34.0-46.0) % MCV 85.9 (80.0-100.0) fL MCH 28.7 (25.0-35.0) pg MCHC 33.4 (31.0-37.0) g/dL RDW 13.6 (11.5-15.5) % Plt Count 385 (150-450) k/uL MPV 8.0 Neutrophils % 72 % Lymphocytes % 19 % Monocytes % 6 % Eosinophils % 1 % Basophils % 0 % Neutrophils # 8.3 H (1.3-7.7) k/uL Lymphocytes # 2.2 (1.0-4.8) k/uL Monocytes # 0.7 (0-1.0) k/uL Eosinophils # 0.1 (0-0.7) k/uL Basophils # 0.0 (0-0.2) k/uL PT 10.5 (9.0-12.0) sec INR 1.0 (<1.2) APTT 28.2 (22.0-30.0) sec D-Dimer 0.27 (<0.60) mg/L FEU Sodium 140 (137-145) mmol/L Potassium 4.2 (3.5-5.1) mmol/L Chloride 106 (98-107) mmol/L Carbon Dioxide 19 L (22-30) mmol/L Anion Gap 15 mmol/L BUN 13 (7-17) mg/dL Creatinine 0.77 (0.52-1.04) mg/dL Est GFR (CKD-EPI)AfAm >90 (>60 ml/min/1.73 sqM) Est GFR (CKD-EPI)NonAf >90 (>60 ml/min/1.73 sqM) Glucose 99 (74-99) mg/dL Calcium 9.6 (8.4-10.2) mg/dL Total Bilirubin 0.8 (0.2-1.3) mg/dL AST 28 (14-36) U/L ALT 19 (4-34) U/L Alkaline Phosphatase 71 (38-126) U/L Troponin I (0.000-0.034) ng/mL Total Protein 8.7 H (6.3-8.2) g/dL Albumin 5.1 H (3.5-5.0) g/dL 10/26/21 Range/Units 16:15 WBC (3.8-10.6) k/uL RBC (3.80-5.40) m/uL Hgb (11.4-16.0) gm/dL Hct (34.0-46.0) % MCV (80.0-100.0) fL MCH (25.0-35.0) pg MCHC (31.0-37.0) g/dL RDW (11.5-15.5) % Plt Count (150-450) k/uL MPV Neutrophils % % Lymphocytes % % Monocytes % % Eosinophils % % Basophils % % Neutrophils # (1.3-7.7) k/uL Lymphocytes # (1.0-4.8) k/uL Monocytes # (0-1.0) k/uL Eosinophils # (0-0.7) k/uL Basophils # (0-0.2) k/uL PT (9.0-12.0) sec INR (<1.2) APTT (22.0-30.0) sec D-Dimer (<0.60) mg/L FEU Sodium (137-145) mmol/L Potassium (3.5-5.1) mmol/L Chloride (98-107) mmol/L Carbon Dioxide (22-30) mmol/L Anion Gap mmol/L BUN (7-17) mg/dL Creatinine (0.52-1.04) mg/dL Est GFR (CKD-EPI)AfAm (>60 ml/min/1.73 sqM) Est GFR (CKD-EPI)NonAf (>60 ml/min/1.73 sqM) Glucose (74-99) mg/dL Calcium (8.4-10.2) mg/dL Total Bilirubin (0.2-1.3) mg/dL AST (14-36) U/L ALT (4-34) U/L Alkaline Phosphatase (38-126) U/L Troponin I <0.012 (0.000-0.034) ng/mL Total Protein (6.3-8.2) g/dL Albumin (3.5-5.0) g/dL - Radiology Data Radiology results: report reviewed Chest x-ray: Normal chest Disposition Clinical Impression: Sinus tachycardia Disposition: HOME SELF-CARE Condition: Good Instructions (If sedation given, give patient instructions): Tachycardia (ED) Additional Instructions: Follow-up with PCP in one to 2 days. Report back to ER with any worsening symptoms or new onset alarming symptoms, including but not limited to chest pain, shortness of breath, swelling in one of the legs, fever, chills, vomiting. What are everyday ways to help manage POTS? Diet and nutrition Increase sodium in your diet to 3,000 mg to 10,000 mg per day. Drink 2-2.5 liters per day of fluids. Water is a good choice. Sports drinks are OK, but watch calories and if you have food sensitivities to these drinks ingredients. Small and frequent meals are better tolerated and reduce POTS symptoms. Diet with high fiber and complex carbohydrates may help reduce blood glucose (sugar) spikes and lessen POTS symptoms. Keep your nutrition balanced with protein, vegetables, dairy and fruits. Plan meals as POTS patients may occasionally not have stamina for grocery shopping and preparing meals. Plan meals when your energy is at its peak. If possible, make it a family plan to prepare food and share grocery shopping responsibilities. Dont over-rely on processed foods. Processed foods are easy to prepare and are appealing when you have reduced energy, but usually have less nutritional value. Beneficial salty snacks may include chicken or beef broth, vegetable broth, pickles, olives, salted fish like sardines/anchovies and nuts. Dont over-rely on snack chips and crackers for salt. Plan grocery store shopping using a list to make sure you knot picker cloth healthy food choices and POTS care (hydration and salty supplements). If your stamina is reduced have someone help you shop, carry and put away your groceries. Health conditions can be costly. Do your best not to compromise nutrition and food choices to save money. You may need a dietary and nutrition consult ordered by your doctor to help you with your diet. This consult can be especially helpful for those with celiac and other dietary sensitivities. Often in early phase of POTS patients don't like how their bodies feel and look. Be careful of fad diets or diet supplements for weight loss. Monitoring POTS Taking and writing down your vital information (blood pressure and pulse) can give you insight and better control over your POTS, and helps your doctor fine tune your treatment. Check blood pressure and pulse at the same time daily (in the morning and after dinner). Its very helpful to do this for the first few months of your diagnosis. Also check blood pressure and pulse when you aren't feeling well. Heart rate/pulse Measuring heart rate can give you insight as you deal with POTS. Other facts about heart rate and POTS: A normal heart rate is between 60 to 100 beats per minute. A fast heart rate over 100 beats per minute can be a condition called tach ycardia. A slow heart rate under 60 beats per minute is called bradycardia. High or low rates can cause symptoms of POTS. Blood pressure Blood pressure is the pressure of the blood in the blood vessels in the circulatory system. Blood pressure is related to the heart beating and the diameter and elasticity of the artery jamil. Blood pressure has two components, systolic and diastolic. Blood pressure is recorded as systolic/diastolic. For example, a blood pressure reading of 120/80 represents the systolic number as 120 and the diastolic number as 80. The systolic refers to the amount of pressure in the arteries during the contraction of your heart muscles (heart beats). The diastolic refers to the blood pressure between heart beats. Normal blood pressure is between is 90-120 for systolic and 60-80 for diastolic. Many patients will have stable blood pressure readings since the adrenergic response to keep heart rate increased will reduce blood pressure drops. POTS patients can have moments of hypertension with the systolic over 140 or diastolic over 85. If hypertension occurs in many readings, inform your POTS specialist of these consistent readings of hypertension. Low blood pressure is below 90/60. Blood pressure logging that reveal low blood pressure readings can be helpful for POTS treatment. Exercise and physical activity Exercise and physical activity are solano to managing POTS. Here are important things to know as you undergo an exercise program such as cardiac rehab, as well as other physical activities. Talk with your healthcare provider for specific instructions on these exercises. Isometric exercises involve gennaro your muscles without actually moving your body. Isometrics squeeze the muscle and push the blood back toward the heart. They are simple to do and can be done lying in bed or seated in a comfortable chair. It's a good idea to do these in bed before getting up to prepare your body for sitting and standing. Transition slowly with your body. Go from lying to sitting on the edge of the bed. Stay there for several minutes, allowing the body to naturally adjust to the change in position. Once you are standing, pause and wait before walking to allow blood pressure to adjust again. If you feel lightheaded at any point, wait for a few minutes in that position to see if it resolves. If not, then return to the prior position as your body isn't adjusting properly. SLOWLY is the solano. Begin a modest walking program. Count how many steps you can do without inducing symptoms. These steps are your initial baseline. Start with walking once a day and go a little further in time, distance or by adding steps. If you feel good, add a second walk in the day. A simple strategy for counting steps is to do 100- 300 steps per awakening hour during the day. Fitness trackers can monitor steps and distance easily. Every week or every few weeks add more steps to your daily total. Simple yoga with focusing on breathing may help reduce POTS symptoms. As you do better with your POTS, more fitness and exercise regimens may be started. Sleep Try to maintain a typical sleep schedule. Go to bed consistently at a certain time and set a consistent time to wake up. The best sleep hygiene and good rest comes from staying consistent with your sleep schedule every day. Even if you had a poor night of sleep, try to get up at your regular time. A consistent sl eep schedule, even with a bad nights sleep, helps you feel better in the longterm. Excessive daytime napping may make nighttime sleep less restful. Most people need 7 to 10 hours sleep at night. Be aware of POTS symptoms of chest pain, sweating, restlessness and racing heart rate during bedtime. These symptoms interfere with sleep quality and may have to be addressed by your POTS specialist Avoid excessive television viewing or use of tablet/smartphone/computer in bed. These technologies can interfere with sleep quality. Raise the head of your bed 6-10 inches to help alleviate POTS symptoms. The entire bed must be at an angle. Raising the head of the bed will reduce urine formation overnight and increase fluid volume in your circulation in the morning. This may help you wake up more easily. Make sure the temperature is ideal in your bedroom to help you get proper rest. LIVING WITH How do I coordinate and organize my care with postural orthostatic tachycardia syndrome (POTS)? Start a binder or folder containing your basic notes and testing results. Periodically review this binder to remove out-of-date data. As a rule, about 20- 30 pages of pertinent medical data will help guide your POTS medical team most effectively. You'll need a healthcare provider or primary care physician to go to for routine care and health wellness management. Your POTS specialist may ask you to see your healthcare provider periodically. Get copies of your medical visit notes from your healthcare provider especially any additional testing results to have in your record binder (see above). If you're feeling very ill or something doesnt feel right, you may need to go to the ER or Urgent Care immediately. If you call your POTS specialist you may be told to go to the ER or Urgent Care Be sure to follow up with your POTS specialist. How do I cope emotionally with POTS? Be open and honest with loved ones and support groups about your diagnosis of POTS. Talk about your fears, hopes, struggles and challenges with the condition. Encourage the people who support you to learn more about POTS. Get enough sleep and eat well to help manage stress. Shared medical appointments and POTS support groups (either online or in person) will help reduce the feeling of being alone and different. Be careful with social media. Be mindful of the accuracy of any particular websites data. Some POTS patients find comfort in social media. For others, social media can cause unnecessary and excessive stress and worry. Be very cautious of quick solutions from non-medical sources and people. Quick solutions usually dont help POTS and can even cause more emotional distress. We recommend counseling to help you learn to cope with a chronic health condition. Counseling may help to control other co-existing mental health issues that may negatively influence POTS. Meditate or take even just a few minutes of a time-out to help reduce some of your POTS symptoms. Emotions can have a significant influence on your daily life and health. Identifying them can be useful if you are talking with a counselor or POTS support group. Is patient prescribed a controlled substance at d/c from ED?: No Referrals: Jarvis Rodríguez MD [Primary Care Provider] - 1-2 days Time of Disposition: 18:39
[2021-10-26 19:24] VITALS: PULSE 92; TEMP 98.5
== END 2021-10-26 19:23 | disposition home or self-care (01) ==
LOC: EC 14:59
DX: R00.0 Tachycardia, unspecified (principal); Z90.49 Acquired absence of other specified parts of digestive tract
CPT/HCPCS: 36415; 71046; 80053; 84484; 85025; 85379; 85610; 85730; 93005; 96360; 99285

== ENCOUNTER → 2022-01-10 | Outpatient (CLI) | payer MEDICAID ==
--- NOTE | 2022-01-11 11:04 | CT ---
EXAMINATION TYPE: CT abdomen wo con DATE OF EXAM: 01/10/2022 HISTORY: umbilical pain, h/o hernia CT DLP: 249 mGycm. Automated Exposure Control for Dose Reduction was Utilized. TECHNIQUE: CT scan of the abdomen is performed with oral but without IV contrast. COMPARISON: Prior CT abdomen and pelvis November 10, 2020 FINDINGS: Within the limitations of a non-contrast study, the following observations are made. LUNG BASES: No significant abnormality is appreciated. LIVER/GB: Gallbladder now surgically absent. PANCREAS: No significant abnormality is seen. SPLEEN: No significant abnormality is seen. ADRENALS: No significant abnormality is seen. KIDNEYS: No renal calculi or hydronephrosis. BOWEL:. Oral contrast does not reach the level of terminal ileum making evaluation of distal bowel sl ightly suboptimal. No suspicious small or large bowel dilatation. Normal-appearing appendix is incide ntally noted. GENITAL ORGANS: Partial visualization of the anteverted uterus with central metallic IUD LYMPH NODES: No greater than 1cm abdominal lymph nodes are appreciated. OSSEOUS STRUCTURES: No significant abnormality is seen. OTHER: New focal eventration or hernia right paraumbilical region axial image 57 containing fat and t iny mesenteric vessels measuring 2.1 cm transversely by 1.3 cm AP diameter. IMPRESSION: New focal eventration or hernia right paraumbilical region axial image 57 containing fat and tiny mesenteric vessels measuring 2.1 cm transversely by 1.3 cm AP diameter.
== END | disposition home or self-care (01) ==
LOC: RADCTMAIN 15:45
PROVIDERS: ATTEND Family Medicine
DX: K63.89 Other specified diseases of intestine (principal)
CPT/HCPCS: 74150; Q9967

== ENCOUNTER 2022-03-29 11:48 | Day surgery (SDC) | payer MEDICAID ==
[2022-03-28 08:44] VITALS: BMI 26.4
[~2022-03-29 11:48] MED LIST changes: +ACETAMINOPHEN TAB 500 MG TAB PO PRN; +DEXAMETHASONE SOD PHOSPHATE 4 MG/ML 1 ML VIAL IV ONE; +HEPARIN SODIUM,PORCINE/PF 5,000 UNIT/0.5 ML SYRINGE SQ PRN; +LACTATED RINGERS 1,000 ML IV SCH; +MIDAZOLAM 2 MG/2 ML VIAL IV PRN; +ONDANSETRON 4 MG/2 ML VIAL IVP ONE; +SCOPOLAMINE 1 MG/72 HR PATCH TRANSDERM ONE; -SODIUM CHLORIDE 0.9% 1,000 ML IV SCH
[2022-03-29 12:32] LABS: Glucose,Whole Blood 81 mg/dL (70-110)
[2022-03-29] MEDS ORDERED: DEXTROSE 50% SYRINGE 50 ML IVP STA (12:43)
[2022-03-29] MEDS ORDERED: DEXTROSE 50% SYRINGE 50 ML IVP ONE (12:43)
[2022-03-29] MEDS ORDERED: MIDAZOLAM 2 MG/2 ML VIAL IVP ONE ×2 (12:56→13:59)
[2022-03-29] MEDS ORDERED: fentaNYL (PF) 50 MCG/ML 2 ML AMP IVP ONE ×2 (13:58→14:00)
--- NOTE | 2022-03-29 14:14 | P.ANPRN ---
Procedure Note - Anesthesia - Nerve Block Performed Bilateral Erector Spinae Single Time Out Performed: Yes Date of Procedure: 03/29/22 Procedure Start Time: 13:58 Procedure Stop Time: 14:10 Location of Patient: PreOp Indication: Acute Post-Operative Pain, Requested by Surgeon Sedation Type: Sedate with meaningful contact maintained Preparation: Sterile Prep, Sterile Dressing Position: Prone Catheter: None Needle Types: Facet Needle Gauge: 20 Ultrasound used to visualize needle placement: Yes Ultrasound used to observe medication spread: Yes Injectate: Other (see comment) (0.25% ropivacaine 30 ml + decadron 4 mg per side) Blood Aspirated: No Pain Paresthesia on Injection Noted: No Resistance on Injection: Normal Image Stored and Saved: Yes Events: Uneventful and Well Tolerated
[2022-03-29] MEDS ORDERED: BUPIVACAIN-EPI 0.25%-1:200,000 30 ML VIAL SQ ONE ×3 (14:15→15:16)
[2022-03-29] MEDS ORDERED: fentaNYL (PF) 50 MCG/ML 2 ML AMP ONE (14:15)
[2022-03-29] MEDS ORDERED: PHENYLEPHRINE-0.9% NACL SYG 1,000 MCG/10 ML SYRINGE ONE (14:15)
[2022-03-29] MEDS ORDERED: DEXAMETHASONE SOD PHOSPHATE 4 MG/ML 1 ML VIAL ONE (14:15)
[2022-03-29] MEDS ORDERED: ROPIVACAINE 5 MG/ML 30 ML VIAL ONE (14:15)
[2022-03-29] MEDS ORDERED: GLYCOPYRROLATE 0.2 MG/ML 2 ML VIAL ONE (14:15)
[2022-03-29] MEDS ORDERED: NEOSTIGMINE 1 MG/ML 10 ML VIAL ONE (14:15)
[2022-03-29] MEDS ORDERED: LIDOCAINE 2% INJ 20 MG/ML (2 ML VIAL) ONE (14:15)
[2022-03-29] MEDS ORDERED: ROCURONIUM 10 MG/ML (5 ML VIAL) IV ONE (14:15)
[2022-03-29] MEDS ORDERED: PROPOFOL 10 MG/ML 20 ML VIAL IV ONE (14:15)
[2022-03-29] MEDS ORDERED: LACTATED RINGERS 1,000 ML IV ONE ×2 (15:26)
--- NOTE | 2022-03-29 15:28 | P.OP ---
Date of Procedure: 03/29/22 Procedure(s) Performed: PREOPERATIVE DIAGNOSIS: Incisional hernia POSTOPERATIVE DIAGNOSIS: Same PROCEDURE: Open repair incisional hernia with mesh SURGEON: Dr. Oswald ANESTHESIA: General OPERATIVE PROCEDURE DETAILS: Patient placed on the operating table in the supine position. Abdomen was prepped and draped in usual sterile fashion. A vertical incision was made connecting the supraumbilical vertical incision with the infraumbilical vertical incision around the left side of the umbilicus. Dissection through the subcutaneous tissues took place using electrocautery. A hernia defect was identified inferior and somewhat to the right of the midline. This is likely at the site of previous trocar placement. The hernia sac was carefully dissected away from the surrounding tissues. This was then reduced into the preperitoneal space. The preperitoneal space was dissected using both blunt dissection and electrocautery. The patient did have an additional 5 mm fascial defect in the midline slightly medial and inferior to the primary hernia defect. Once we had adequate space in the preperitoneal space a 4.3 cm ventral ex mesh was placed in the preperitoneal space. Trans-fascial 0 Ethibond sutures were used to secure the mesh to the fascia. The defect was closed horizontally using overlapping horizontal mattress sutures. The folding edge was sutured down using 0 Ethibond sutures as well. The smaller defect was closed using a single [id number] stitch and this was anterior to our mesh. The area was irrigated. No bleeding was seen. The base of the umbilicus was sutured back down to the fascia using a 2-0 Vicryl stitch. The subcutaneous tissues were closed using 3-0 Vicryl sutures. The skin was closed using 4-0 Monocryl subcuticular sutures. Skin glue was applied. HERNIA CHARACTERISTICS: Length: 2.2 cm Width: 1.2 cm Type: Incisional TYPE OF MESH USED: Ventral ex 4.3 cm round LOCATION OF MESH: Sub-lay FIXATION: 0 Ethibond PREOPERATIVE DISCUSSION ON SMOKING CESSASTION: Yes PREOPERATIVE DISCUSSION ON MORBID OBESITY: Yes PREOPERATIVE DISCUSSION ON APPROPRIATE USE OF NARCOTIC USE: Yes PREOPERATIVE EDUCATION: Multi Modal, Smoking Cessation and Weight Loss with BMI over 35. DISPOSITION: Stable to recovery room
[2022-03-29] MEDS: HYDROmorphone 0.5 MG/0.5 ML SYRINGE IVP PRN ×2 (15:40→16:07)
[2022-03-29 15:49] VITALS: TEMP 97.8
[2022-03-29 16:37] VITALS: RESP 18
[2022-03-29 16:48] VITALS: BP 108/75; PULSE 99
[2022-03-29] MEDS ORDERED: ACETAMINOPHEN TAB 325 MG TAB PO SCH (18:00)
[2022-03-29] MEDS ORDERED: IBUPROFEN 600 MG TAB PO SCH (21:00)
== END 2022-03-29 17:12 | disposition home or self-care (01) ==
LOC: OR 11:48
PROVIDERS: ATTEND Surgery
DX: K43.2 Incisional hernia without obstruction or gangrene (principal); G89.18 Other acute postprocedural pain; E16.2 Hypoglycemia, unspecified; R55 Syncope and collapse; K59.09 Other constipation; L30.9 Dermatitis, unspecified; I49.8 Other specified cardiac arrhythmias; Z79.899 Other long term (current) drug therapy; Z79.891 Long term (current) use of opiate analgesic
CPT/HCPCS: 49560; 49568; 81025; 64999; C1781; J2250; J1100; J2710; J0690; J2405; J3010; J2795; J2370; J2704; J1170; J1644; J2001

== ENCOUNTER → 2023-05-29 | Outpatient (CLI) | payer BC ==
--- NOTE | 2023-05-29 14:23 | XR ---
EXAMINATION TYPE: XR lumbosacral spine min 4V DATE OF EXAM: 05/29/2023 2:05 PM CLINICAL INDICATION:Female, 32 years old with history of M54.50 low back pain after fall; [facility] COMPARISON: CT 01/10/2022. TECHNIQUE: XR lumbosacral spine min 4V - Frontal, lateral and coned in L5-S1 lateral views of the spi ne. FINDINGS: No evidence of any acute osseous pathology. No evidence of loss of vertebral body height i s seen. There is normal alignment of the lumbar vertebral bodies. Mild disc space narrowing. Minimal marginal osteophyte formation throughout the visualized spine. There is facet joint arthropathy throu ghout the spine worse in the lower spine the neural foramen appear mildly narrowed at L5-S1. IMPRESSION: 1. No acute fracture. 2. Mild multilevel disc degeneration.
== END | disposition home or self-care (01) ==
LOC: RADXRMAIN 13:39
PROVIDERS: ATTEND Family Medicine
DX: G90.A Postural orthostatic tachycardia syndrome [POTS] (principal); M51.36 Other intervertebral disc degeneration, lumbar region
CPT/HCPCS: 72110

== ENCOUNTER 2023-10-12 20:42 | Emergency (ER) | payer BC ==
[2023-10-12 20:59] VITALS: TEMP 98.4
[2023-10-12 21:12] LABS: Basophils # (A) 0.1 k/uL (0-0.2); Basophils % (A) 1 %; Eosinophils # (A) 0.3 k/uL (0-0.7); Eosinophils % (A) 3 %; HCT 41.4 % (34.0-46.0); HGB 14.2 gm/dL (11.4-16.0); Lymphocytes # (A) 3.9 k/uL (1.0-4.8); Lymphocytes % (A) 32 %; MCH 29.4 pg (25.0-35.0); MCHC 34.3 g/dL (31.0-37.0); MCV 85.7 fL (80.0-100.0); Mean Platelet Volume 8.6; Monocytes # (A) 0.5 k/uL (0-1.0); Monocytes % (A) 4 %; Neutrophils % (A) 59 %; Platelet Count 344 k/uL (150-450); RBC 4.83 m/uL (3.80-5.40); RDW 13.2 % (11.5-15.5); WBC 11.9 k/uL (3.8-10.6)
[2023-10-12 21:25] LABS: INR 0.8 (<1.2); Partial Thromboplastin Time 24.9 sec (22.0-30.0); Prothrombin Time 9.6 sec (10.0-12.5)
[2023-10-12 21:30] LABS: ALT 21 U/L (4-34); AST 18 U/L (14-36); African American GFR (CKD) >90 (>60 ml/min/1.73 sqM); Albumin 4.4 g/dL (3.5-5.0); Alkaline Phosphatase 95 U/L (38-126); Anion Gap 8 mmol/L; Blood Urea Nitrogen 18 mg/dL (7-17); Calcium 9.2 mg/dL (8.4-10.2); Carbon Dioxide 26 mmol/L (22-30); Chloride 103 mmol/L (98-107); Glucose 107 mg/dL (74-99); Magnesium 1.9 mg/dL (1.6-2.3); Non-African American GFR(CKD) >90 (>60 ml/min/1.73 sqM); Potassium 4.5 mmol/L (3.5-5.1); Sodium 137 mmol/L (137-145); Total Bilirubin 0.6 mg/dL (0.2-1.3); Total Protein 7.4 g/dL (6.3-8.2)
--- NOTE | 2023-10-12 21:53 | ED ---
Chest Pain HPI - General Chief Complaint: Chest Pain Stated Complaint: Chest pain Time Seen by Provider: 10/12/23 21:44 Source: patient Limitations: no limitations - History of Present Illness Initial Comments: This patient is a 33-year-old woman who presents to evaluation for pains in the left chest. The patient states that she noticed these couple of hours ago while at rest. She is having intermittent sharp stabbing pains that she states seem to go from the left breast area to the back. She states that they last up to a minute and then there are a number of minutes in between. She has noticed that if she tries to lie supine the pain is worse. She has not noted relieving factors other than sitting up. She has had no associated symptoms. MD Complaint: chest pain -: hour(s) Onset: during rest Pain Location: left chest Pain Radiation: back Severity: moderate Quality: sharp Consistency: intermittent Improves With: nothing Worsens With: supine Treatments Prior to Arrival: none - Related Data Home Medications Medication Instructions Recorded Confirmed Elagolix Sodium [Orilissa] 200 mg PO BID 04/12/21 03/28/22 Cetirizine HCl 10 mg PO HS 10/26/21 03/28/22 Ondansetron Odt [Zofran Odt] 8 mg PO DAILY PRN 10/26/21 03/28/22 HYDROcodone/APAP 5-325MG [[place] 1 tab PO Q4HR PRN 03/28/22 03/28/22 5-325] Previous Rx's Medication Instructions Recorded Ibuprofen [Motrin] 600 mg PO Q8HR PRN #20 tab 10/13/23 Allergies Allergy/AdvReac Type Severity Reaction Status Date / Time No Known Allergies Allergy Verified 10/12/23 20:46 Review of Systems ROS Statement: Those systems with pertinent positive or pertinent negative responses have been documented in the HPI. ROS Other: All systems not noted in ROS Statement are negative. Constitutional: Denies: fever, chills, weakness Respiratory: Denies: cough, dyspnea, hemoptysis Cardiovascular: Reports: chest pain. Denies: palpitations, dyspnea on exertion, orthopnea, edema, syncope Gastrointestinal: Denies: abdominal pain, nausea, vomiting, diarrhea Genitourinary: Denies: dysuria, hematuria Musculoskeletal: Denies: back pain Skin: Denies: rash Neurological: Denies: headache, weakness, numbness EKG Findings - EKG Results: EKG: interpreted by ERMD, sinus rhythm (Rate 91 bpm), normal axis, normal ST/T - Blocks, [place], Hypertrophy, ST Abn: QRS axis and voltage: low voltage (<0.5 MV total QRS and <1.0 MV in each precordial lead) Past Medical History Past Medical History: Skin Disorder, Syncope Additional Past Medical History / Comment(s): Hypoglycemia. Endometriosis. POTS. Eczema. History of Any Multi-Drug Resistant Organisms: None Reported Past Surgical History: Cholecystectomy, Hernia Repair Additional Past Surgical History / Comment(s): Ventral/umbilical hernia repair, wisdom teeth extracted, Tilt table test. Past Anesthesia/Blood Transfusion Reactions: Postoperative Nausea & Vomiting (PONV) Past Psychological History: No Psychological Hx Reported Smoking Status: Never smoker Past Alcohol Use History: Rare Past Drug Use History: None Reported - Past Family History Father Family Medical History: No Reported History Additional Family Medical History / Comment(s): Limited contact with her father. He is an alcoholic. Mother Additional Family Medical History / Comment(s): Mother is . Mother had ETOH abuse and used cocaine and occasionally heroin. General Exam Limitations: no limitations General appearance: alert, in no apparent distress Head exam: Present: atraumatic, normocephalic Eye exam: Present: normal appearance. Absent: scleral icterus, conjunctival injection Neck exam: Present: normal inspection Respiratory exam: Present: normal lung sounds bilaterally. Absent: respiratory distress, wheezes, rales, rhonchi, stridor, chest wall tenderness, accessory muscle use Cardiovascular Exam: Present: regular rate, normal rhythm, normal heart sounds. Absent: systolic murmur, diastolic murmur, rubs, gallop GI/Abdominal exam: Present: soft. Absent: distended, tenderness, guarding, rebound, rigid, mass Extremities exam: Present: normal inspection, normal capillary refill. Absent: pedal edema, calf tenderness Back exam: Present: normal inspection. Absent: CVA tenderness (R), CVA tenderness (L) Neurological exam: Present: alert Skin exam: Present: warm, dry, intact, normal color. Absent: rash Course Vital Signs 10/12/23 10/12/23 20:43 23:43 Temperature 98.4 F Pulse Rate 93 83 Respiratory 18 16 Rate Blood Pressure 133/84 118/92 O2 Sat by Pulse 98 97 Oximetry Chest Pain MDM - MDM The patient had chest x-ray that I interpreted as negative for acute infiltrate, pneumothorax, congestive heart failure Was pt. sent in by a medical professional or institution ([facility], INSURANCE SALESPERSON, urgent care, hospital, or halfway...) When possible be specific @ -[No] Did you speak to anyone other than the patient for history (EMS, parent, family, police, friend...)? What history was obtained from this source @ -[No] Did you review nursing and triage notes (agree or disagree)? Why? @ -[I reviewed and agree with nursing and triage notes] Were old charts reviewed (outside hosp., previous admission, EMS record, old EKG, old radiological studies, urgent care reports/EKG's, halfway records)? Report findings @ -[No old charts were reviewed] Differential Diagnosis (chest pain, altered mental status, abdominal pain women, abdominal pain men, vaginal bleeding, weakness, fever, dyspnea, syncope, h eadache, dizziness, GI bleed, back pain, seizure, CVA, palpatations, mental health, musculoskeletal)? @ -[Differential Chest Pain: Stable Angina, Unstable Angina, STEMI, NSTEMI Aortic Dissection, Pneumothorax, Musculoskeletal, Esophageal Spasm GERD, Cholecystitis, Pancreatitis, Zoster, this is not meant to be an all-inclusive list. EKG interpreted by me (3pts min.). @ -[I interpreted as above X-rays interpreted by me (1pt min.). @ -[I interpreted as above CT interpreted by me (1pt min.). @ -[None done] U/S interpreted by me (1pt. min.). @ -[None done] What testing was considered but not performed or refused? (CT, X-rays, U/S, labs)? Why? @ -[None] What meds were considered but not given or refused? Why? @ -[None] Did you discuss the management of the patient with other professionals (professionals i.e. [facility] Regalado, INSURANCE SALESPERSON, lab, RT, psych nurse, health social work professor, personnel officer, teacher, weapons electrical engineering officer, rifle case repairer)? Give summary @ -[No] Was smoking cessation discussed for >3mins.? @ -[No] Was critical care preformed (if so, how long)? @ -[No] Were there social determinants of health that impacted care today? How? (Homelessness, low income, unemployed, alcoholism, drug addiction, transpo rtation, low edu. Level, literacy, decrease access to med. care, correction, rehab)? @ -[No] Was there de-escalation of care discussed even if they declined (Discuss DNR or withdrawal of care, Hospice)? DNR status @ -[No] What co-morbidities impacted this encounter? (DM, HTN, Smoking, COPD, CAD, Cancer, CVA, ARF, Chemo, Hep., AIDS, mental health diagnosis, sleep apnea, morbid obesity)? @ -[None] Was patient admitted / discharged? Hospital course, mention meds given and route, prescriptions, significant lab abnormalities, going to OR and other pertinent info. @ -[Patient is a 33-year-old woman here with pleuritic left chest pain. The workup and physical exam not suggestive of serious underlying cause such as DVT or pneumothorax. We discussed appropriate further care and follow-up including nonsteroidals, follow-up with her physician to ensure there is resolution, also reviewed return parameters. Undiagnosed new problem with uncertain prognosis? @ -[No] Drug Therapy requiring intensive monitoring for toxicity (Heparin, Nitro, Insulin, Cardizem)? @ -[No] Were any procedures done? @ -[No] Diagnosis/symptom? @ -[Acute pleuritic chest pain Acute, or Chronic, or Acute on Chronic? @ -[Acute Uncomplicated (without systemic symptoms) or Complicated (systemic symptoms)? @ -[Uncomplicated Side effects of treatment? @ -[No] Exacerbation, Progression, or Severe Exacerbation? @ -[No] Poses a threat to life or bodily function? How? (Chest pain, [place], [place], pneumonia, PE, COPD, DKA, ARF, appy, cholecystitis, CVA, Diverticulitis, Homicidal, Suicidal, threat to staff... and all critical care pts) @ -[No] Disposition Clinical Impression: Pleuritis Disposition: HOME SELF-CARE Condition: Good Instructions (If sedation given, give patient instructions): Chest Pain (ED), Pleurisy (ED) Prescriptions: Ibuprofen [Motrin] 600 mg PO Q8HR PRN #20 tab PRN Reason: Pain Is patient prescribed a controlled substance at d/c from ED?: No Referrals: Jarvis Rodríguez MD [Primary Care Provider] - 1-2 days
[2023-10-12 23:54] VITALS: BP 118/92; PULSE 83; RESP 16
--- NOTE | 2023-10-12 23:55 | XR ---
EXAMINATION TYPE: XR chest 2V DATE OF EXAM: 10/12/2023 9:44 PM CLINICAL INDICATION:Female, 33 years old with history of Chest Pain; [facility] COMPARISON: None TECHNIQUE: XR chest 2V. Frontal and lateral views of the chest.. FINDINGS: Lines/Tubes/Devices: No indwelling lines are seen. Extrinsic densities over the chest, are removed for a repeat image. Heart/mediastinum: Heart size is normal. Mediastinum appears normal. Pulmonary vascularity: Not increased, Lungs/Pleura: There is no evidence of pleural effusion, focal consolidation, or pneumothorax. Mild subsegmental atelectasis in the lung bases. Musculoskeletal: No acute osseous abnormality demonstrated in the limits of the exam. Other findings: Clips in the right upper quadrant likely from cholecystectomy. IMPRESSION: No acute cardiopulmonary abnormality.
[2023-10-13] MEDS: IBUPROFEN 600 MG TAB PO STA (00:18)
== END 2023-10-13 00:20 | disposition home or self-care (01) ==
LOC: EC 20:42
DX: R07.81 Pleurodynia (principal)
CPT/HCPCS: 36415; 71046; 80053; 83735; 84484; 85025; 85379; 85610; 85730; 93005; 99285

== ENCOUNTER → 2023-11-03 | Day surgery (SDC) | payer BC ==
[2023-10-29 16:28] VITALS: BMI 31.7
[~2023-11-03] MED LIST changes: -ACETAMINOPHEN TAB 500 MG TAB PO PRN; -DEXAMETHASONE SOD PHOSPHATE 4 MG/ML 1 ML VIAL IV ONE; -HEPARIN SODIUM,PORCINE/PF 5,000 UNIT/0.5 ML SYRINGE SQ PRN; -LACTATED RINGERS 1,000 ML IV SCH; -MIDAZOLAM 2 MG/2 ML VIAL IV PRN; -ONDANSETRON 4 MG/2 ML VIAL IVP ONE; -SCOPOLAMINE 1 MG/72 HR PATCH TRANSDERM ONE; +SODIUM CHLORIDE 0.9% 1,000 ML IV SCH
[2023-11-03] MEDS: SODIUM CHLORIDE 0.9% 500 ML 500 ML IV ONE (12:41)
[2023-11-03 13:02] VITALS: RESP 16; TEMP 97.9
[2023-11-03 15:47] VITALS: BP 115/70; PULSE 73
--- NOTE | 2023-11-03 16:07 | P.EPPROC ---
- EP Procedure Note Electrophysiology Procedure Note: Diagnosis Recurrent syncope Twelve-lead EKG shows sinus rhythm normal SD narrow QRS normal ST segments normal QT interval Tilt table test per protocol Baseline blood pressure 118/71 mmHg baseline heart rate 81 beats a minute Patient was tilted upright in angle of 70 degrees per protocol increase in heart rate by 20-30 beats within the first 10 minutes blood pressure remained stable She felt a little dizzy occasionally Towards the end she felt hot and nauseous but there was no secondary neurocardiogenic phenomena When she was laid supine heart rate returned back to the 80s sinus rhythm Impression Normal twelve-lead EKG Mild orthostatic intolerance
== END ==
LOC: CATHEP 12:03
PROVIDERS: ATTEND Internal Medicine Clinical Cardiac Electrophysiology
DX: R55 Syncope and collapse (principal)
CPT/HCPCS: 81025; 93660

== ENCOUNTER → 2023-12-18 | Outpatient (CLI) | payer BC ==
[2023-12-18 09:20] LABS: Calcium 9.6 mg/dL (8.4-10.2)
[2023-12-18 13:40] LABS: Glucose 2 Hour 154 mg/dL
== END | disposition home or self-care (01) ==
LOC: LABWHC1 08:27
PROVIDERS: ATTEND Obstetrics & Gynecology
DX: E55.9 Vitamin D deficiency, unspecified (principal); Z86.32 Personal history of gestational diabetes
CPT/HCPCS: 36415; 82310; 82947; 82950; 83970

== ENCOUNTER 2023-12-21 23:13 | Emergency (ER) | payer BC ==
[2023-12-21 23:48] VITALS: TEMP 98.2
--- NOTE | 2023-12-22 00:44 | ED ---
Animal Bite HPI - General Chief Complaint: Animal Bite Stated Complaint: Cat bite Time Seen by Provider: 12/22/23 00:08 Source: patient, RN notes reviewed Mode of arrival: ambulatory Limitations: no limitations - History of Present Illness Initial Comments: 4-year-old female presenting to the ED with complaints of cat bite. Patient states that her [id number]'s cat bit her right thumb. Cat is fully vaccinated. She reports her tetanus status is not up-to-date which is what prompted presentation to the ED for further evaluation. No fever or chills. No other injury at this time. No other complaints. - Related Data Home Medications Medication Instructions Recorded Confirmed Ondansetron Odt [Zofran Odt] 8 mg PO DAILY PRN 10/26/21 11/03/23 Buffer Electrolytes 2 tab PO BID 10/29/23 11/03/23 Butalb/Acetaminophen/Caffeine 1 each PO DIRECTED PRN 10/29/23 11/03/23 [Fioricet 50-300-40 mg Capsule] Cholecalciferol (Vitamin D3) 50 mcg PO DAILY 10/29/23 11/03/23 [Vitamin D3 (50 Mcg = 2000 Iu)] Pregabalin [Lyrica] 100 mg PO TID 10/29/23 11/03/23 Propranolol HCl 20 mg PO DAILY 10/29/23 11/03/23 Previous Rx's Medication Instructions Recorded Amoxic-Pot Clav 875-125Mg 1 tab PO Q12HR 7 Days #14 tab 12/22/23 [Augmentin 875-125] Allergies Allergy/AdvReac Type Severity Reaction Status Date / Time No Known Allergies Allergy Verified 12/21/23 23:19 Review of Systems ROS Statement: Those systems with pertinent positive or pertinent negative responses have been documented in the HPI. ROS Other: All systems not noted in ROS Statement are negative. Past Medical History Past Medical History: Skin Disorder, Syncope Additional Past Medical History / Comment(s): Hypoglycemia. Endometriosis. POTS. Eczema. History of Any Multi-Drug Resistant Organisms: None Reported Past Surgical History: Cholecystectomy, Hernia Repair Additional Past Surgical History / Comment(s): Ventral/umbilical hernia repair, wisdom teeth extracted, Tilt table test. Past Anesthesia/Blood Transfusion Reactions: Postoperative Nausea & Vomiting (PONV) Past Psychological History: No Psychological Hx Reported Smoking Status: Never smoker Past Alcohol Use History: None Reported Past Drug Use History: Marijuana - Past Family History Father Family Medical History: No Reported History Additional Family Medical History / Comment(s): Limited contact with her father. He is an alcoholic. Mother Additional Family Medical History / Comment(s): Mother is . Mother had ETOH abuse and used cocaine and occasionally heroin. General Exam Limitations: no limitations General appearance: alert, in no apparent distress Eye exam: Present: normal appearance Neck exam: Present: normal inspection Respiratory exam: Present: normal lung sounds bilaterally Cardiovascular Exam: Present: regular rate GI/Abdominal exam: Present: soft Extremities exam: Present: other (3 puncture wounds on the dorsum of the right thumb. No active bleeding. Able to flex extend and oppose the thumb. No signi ficant point tenderness to palpation.) Neurological exam: Present: alert, oriented X3 Skin exam: Present: warm, dry Course Vital Signs 12/21/23 23:16 Temperature 98.2 F Pulse Rate 82 Respiratory 18 Rate Blood Pressure 126/86 O2 Sat by Pulse 97 Oximetry Medical Decision Making - Medical Decision Making Was pt. sent in by a medical professional or institution (, PA, SENIOR TECHNICAL MANAGER, urgent care, hospital, or jail...) When possible be specific @ -No Did you speak to anyone other than the patient for history (EMS, parent, family, police, friend...)? What history was obtained from this source @ -No Did you review nursing and triage notes (agree or disagree)? Why? @ -I reviewed and agree with nursing and triage notes Were old charts reviewed (outside hosp., previous admission, EMS record, old EKG, old radiological studies, urgent care reports/EKG's, jail records)? Report findings @ -No old charts were reviewed Differential Diagnosis (chest pain, altered mental status, abdominal pain women, abdominal pain men, vaginal bleeding, weakness, fever, dyspnea, syncope, headache, dizziness, GI bleed, back pain, seizure, CVA, palpatations, mental health, musculoskeletal)? @ -Differential Musculoskeletal Muscular strain, contusion, ligament sprain, fracture, arthritis, septic arthritis, bursitis, cellulitis, muscle spasm, nerve compression, DVT, arterial occlusion, herpes zoster, electrolyte abnormality, tumor.... This is not meant to be in all inclusive list EKG interpreted by me (3pts min.). @ -As above X-rays interpreted by me (1pt min.). @ -None done CT interpreted by me (1pt min.). @ -None done U/S interpreted by me (1pt. min.). @ -None done What testing was considered but not performed or refused? (CT, X-rays, U/S, labs)? Why? @ -None What meds were considered but not given or refused? Why? @ -None Did you discuss the management of the patient with other professionals (professionals i.e. , PA, SENIOR TECHNICAL MANAGER, lab, RT, psych nurse, social welfare clerk, dining chair seat cushion trimmer, teacher, youth corrections officer, case management director)? Give summary @ -No Was smoking cessation discussed for >3mins.? @ -No Was critical care preformed (if so, how long)? @ -No Were there social determinants of health that impacted care today? How? (Homelessness, low income, unemployed, alcoholism, drug addiction, transportation, low edu. Level, literacy, decrease access to med. care, correction, rehab)? @ -No Was there de-escalation of care discussed even if they declined (Discuss DNR or withdrawal of care, Hospice)? DNR status @ -No What co-morbidities impacted this encounter? (DM, HTN, Smoking, COPD, CAD, Cancer, CVA, ARF, Chemo, Hep., AIDS, mental health diagnosis, sleep apnea, morbid obesity)? @ -None Was patient admitted / discharged? Hospital course, mention meds given and route, prescriptions, significant lab abnormalities, going to OR and other pertinent info. @ -Discharge 33-year-old female presents to the ED with complaints of cat bite occurring a few hours ago. On exam superficial puncture wounds overlying the right thumb. Tetanus updated. Provided first dose of Augmentin here. Provided starter pack for Augmentin and prescription for Augmentin. Discharged home in stable condition. Discussed strict return precautions with patient who verbalized agreement. Undiagnosed new problem with uncertain prognosis? @ -No Drug Therapy requiring intensive monitoring for toxicity (Heparin, Nitro, Insulin, Cardizem)? @ -No Were any procedures done? @ -No Diagnosis/symptom? @ -Cat bite, right thumb Acute, or Chronic, or Acute on Chronic? @ -Acute Uncomplicated (without systemic symptoms) or Complicated (systemic symptoms)? @ -Uncomplicated Side effects of treatment? @ -No Exacerbation, Progression, or Severe Exacerbation? @ -No Poses a threat to life or bodily function? How? (Chest pain, [place], [place], pneumonia, PE, COPD, DKA, ARF, appy, cholecystitis, CVA, Diverticulitis, Homicidal, Suicida l, threat to staff... and all critical care pts) @ -Unlikely at this time Disposition Clinical Impression: Cat bite Disposition: HOME SELF-CARE Condition: Good Instructions (If sedation given, give patient instructions): Animal Bite (ED) Additional Instructions: Please return to the Emergency Department if symptoms worsen or any other concerns. Please follow-up with your primary care provider. Prescriptions: Amoxic-Pot Clav 875-125Mg [Augmentin 875-125] 1 tab PO Q12HR 7 Days #14 tab Is patient prescribed a controlled substance at d/c from ED?: No Referrals: Jarvis Rodríguez MD [Primary Care Provider] - 1-2 days Time of Disposition: 00:47
[2023-12-22] MEDS: AMOXIC-POT CLAV 875MG STARTER PACK 2 TAB BTL PO STA (00:45)
[2023-12-22] MEDS: AMOXIC-POT CLAV 875-125MG 1 EACH TAB PO STA (00:45)
[2023-12-22] MEDS: DIPH,PERTUS(ACELL)TETVAC-LF 0.5 ML VIAL IM ONE (00:46)
[2023-12-22 01:56] VITALS: BP 121/82; PULSE 102; RESP 20
== END 2023-12-22 00:56 | disposition home or self-care (01) ==
LOC: EC 23:13
DX: S61.051A Open bite of right thumb without damage to nail, initial encounter (principal); F12.90 Cannabis use, unspecified, uncomplicated; Z23 Encounter for immunization; W55.01XA Bitten by cat, initial encounter
CPT/HCPCS: 90471; 90715; 99283

== ENCOUNTER → 2024-03-31 | Outpatient (CLI) | payer BC ==
[2024-03-31 17:42] LABS: Phosphorus 3.3 mg/dL (2.4-5.1)
[2024-03-31 17:43] LABS: Chloride 102 mmol/L (96-109); Glucose 88 mg/dL (70-110); Potassium 4.6 mmol/L (3.5-5.5); Sodium 140 mmol/L (135-145)
[2024-03-31 17:44] LABS: ALT 31 U/L (8-44); AST 21 U/L (13-35); Albumin 4.7 g/dL (3.8-4.9); Albumin/Globulin Ratio 1.81 Ratio (1.60-3.17); Alkaline Phosphatase 95 U/L (41-126); Calcium 9.6 mg/dL (8.7-10.3); Carbon Dioxide 24.9 mmol/L (21.6-31.8); Globulin 2.6 g/dL (1.6-3.3); Total Bilirubin 0.4 mg/dL (0.3-1.2); Total Protein 7.3 g/dL (6.2-8.2)
== END | disposition home or self-care (01) ==
LOC: LABWHC1 09:24
PROVIDERS: ATTEND Internal Medicine Endocrinology, Diabetes & Metabolism
DX: E21.1 Secondary hyperparathyroidism, not elsewhere classified (principal); R73.03 Prediabetes
CPT/HCPCS: 36415; 80053; 82306; 83970; 84100

== ENCOUNTER → 2024-11-23 | Outpatient (CLI) | payer MEDICARE, OTHER | END | disposition home or self-care (01) | LOC: LABWHC1 12:27 | PROVIDERS: ATTEND Psychiatry & Neurology Neurology | DX: I49.9 Cardiac arrhythmia, unspecified (principal) | CPT/HCPCS: 36415; 93005 ==

== ENCOUNTER 2025-01-14 07:02 | Emergency (ER) | payer MEDICARE, OTHER ==
[2025-01-14 07:08] VITALS: RESP 16
--- NOTE | 2025-01-14 07:50 | ED ---
General Adult HPI - General Chief complaint: Head Injury Stated complaint: fall,neck pain Time Seen by Provider: 01/14/25 07:11 Source: patient Mode of arrival: ambulatory Limitations: no limitations - History of Present Illness Initial comments: Dictation was produced using [employer] dictation software. please excuse any grammatical, word or spelling errors. Chief Complaint: 34-year-old female with head injury History of Present Illness: Patient 34-year-old female with history of syncope secondary to POTS and vasovagal syncope. Patient states she passed out in the shower yesterday. Patient states that she hit the right side of her head. Today she woke up with head pain. Was concerned that maybe she had hurt herself pretty bad. Patient has a history of syncope and syncopized as a lot. She sees neurology who manages her syncope. Takes propranolol for alleviation of syncopal episodes. The ROS documented in this emergency department record has been reviewed and confirmed by me. Those systems with pertinent positive or negative responses have been documented in the HPI. All other systems are other negative and/or noncontributory. - Related Data Home Medications Medication Instructions Recorded Confirmed Ondansetron Odt [Zofran Odt] 8 mg PO DAILY PRN 10/26/21 11/03/23 Buffer Electrolytes 2 tab PO BID 10/29/23 11/03/23 Butalb/Acetaminophen/Caffeine 1 each PO DIRECTED PRN 10/29/23 11/03/23 [Fioricet 50-300-40 mg Capsule] Cholecalciferol (Vitamin D3) 50 mcg PO DAILY 10/29/23 11/03/23 [Vitamin D3 (50 Mcg = 2000 Iu)] Pregabalin [Lyrica] 100 mg PO TID 10/29/23 11/03/23 Propranolol HCl 20 mg PO DAILY 10/29/23 11/03/23 Previous Rx's Medication Instructions Recorded Amoxic-Pot Clav 875-125Mg 1 tab PO Q12HR 7 Days #14 tab 12/22/23 [Augmentin 875-125] Allergies Allergy/AdvReac Type Severity Reaction Status Date / Time No Known Allergies Allergy Verified 01/14/25 07:08 Review of Systems ROS Statement: Those systems with pertinent positive or pertinent negative responses have been documented in the HPI. ROS Other: All systems not noted in ROS Statement are negative. Past Medical History Past Medical History: Fibromyalgia, Skin Disorder, Syncope Additional Past Medical History / Comment(s): Hypoglycemia. Endometriosis. POTS. Eczema. History of Any Multi-Drug Resistant Organisms: None Reported Past Surgical History: Cholecystectomy, Hernia Repair Additional Past Surgical History / Comment(s): Ventral/umbilical hernia repair, wisdom teeth extracted, Tilt table test. Past Anesthesia/Blood Transfusion Reactions: Postoperative Nausea & Vomiting (PONV) Past Psychological History: No Psychological Hx Reported Smoking Status: Never smoker Past Alcohol Use History: None Reported Past Drug Use History: Marijuana - Past Family History Father Family Medical History: No Reported History Additional Family Medical History / Comment(s): Limited contact with her father. He is an alcoholic. Mother Additional Family Medical History / Comment(s): Mother is . Mother had ETOH abuse and used cocaine and occasionally heroin. General Exam - General Exam Comments Initial Comments: PHYSICAL EXAM: General Impression: Alert and oriented x3, not in acute distress HEENT: Normocephalic atraumatic, extra-ocular movements intact, pupils equal and reactive to light bilaterally, mucous membranes moist. Cardiovascular: Heart regular rate and rhythm Chest: Able to complete full sentences, no retractions, no tachypnea Abdomen: abdomen soft, non-tender, non-distended, no organomegaly Musculoskeletal: Pulses present and equal in all extremities, no peripheral kit a Motor: no focal deficits noted Neurological: CN II-XII grossly intact, no focal motor or sensory deficits noted Skin: Intact with no visualized rashes Psych: Normal affect and mood Limitations: no limitations Course Vital Signs 01/14/25 07:05 Temperature 97.5 F L Pulse Rate 71 Respiratory 16 Rate Blood Pressure 116/79 O2 Sat by Pulse 100 Oximetry EKG Findings - EKG Comments: EKG Findings:: My EKG interpretation: Ventricular rate 70, sinus rhythm, AL 145, QRS 77, QTc 380. No AL prolongation, no QTC prolongation, no ST or T-wave altman ges noted. Overall, this EKG is unremarkable Medical Decision Making - Medical Decision Making Was pt. sent in by a medical professional or institution (, PA, CONTINUING EDUCATION SPECIALIST, urgent care, hospital, or longterm...) When possible be specific @ -No Did you speak to anyone other than the patient for history (EMS, parent, family, police, friend...)? What history was obtained from this source @ -No Did you review nursing and triage notes (agree or disagree)? Why? @ -I reviewed and agree with nursing and triage notes Were old charts reviewed (outside hosp., previous admission, EMS record, old EKG, old radiological studies, urgent care reports/EKG's, longterm records)? Report findings @ -No old charts were reviewed Differential Diagnosis (chest pain, altered mental status, abdominal pain women, abdominal pain men, vaginal bleeding, musculoskeletal, weakness, fever, dyspnea, syncope, headache, dizziness, GI bleed, back pain, seizure, CVA, palpatations, mental health)? @ -Skull fracture, facial contusion, syncope EKG interpreted by me (3pts min.). @ -See above X-rays interpreted by me (1pt min.). @ -None done CT interpreted by me (1pt min.). @ -CT face, CT brain shows no acute processes U/S interpreted by me (1pt. min.). @ -None done What testing was considered but not performed or refused? (CT, X-rays, U/S, labs)? Why? @ -None What meds were considered but not given or refused? Why? @ -None Was smoking cessation discussed for >3mins.? @ -No Were there social determinants of health that impacted care today? How? (Roxanna elessness, low income, unemployed, alcoholism, drug addiction, transportation, low edu. Level, literacy, decrease access to med. care, fci, rehab)? @ -No Was there de-escalation of care discussed even if they declined (Discuss DNR or withdrawal of care, Hospice)? DNR status @ -No What co-morbidities impacted this encounter? (DM, HTN, Smoking, COPD, CAD, Cancer, CVA, ARF, Chemo, Hep., AIDS, mental health diagnosis, sleep apnea, morbid obesity)? @ -See above Was patient admitted / discharged? Hospital course, mention meds given and route, prescriptions, significant lab abnormalities, going to OR and other pertinent info. @ -34-year-old female history of syncope presents emergency department after syncope and fall. Complaining of head pain after suffering a fall yesterday. Patient well-appearing. Physical examination is benign. Imaging studies negative. Labs are unremarkable. Patient discharged vies follow-up with primary care doctor. Did you discuss the management of the patient with other professionals (professionals i.e. , PA, CONTINUING EDUCATION SPECIALIST, lab, RT, psych nurse, oncology social worker, ceramic products sales engineer, teacher, radiation officer, case resource manager)? Give summary @ -No Was critical care preformed (if so, how long)? @ -No Undiagnosed new problem with uncertain prognosis? @ -No Drug Therapy requiring intensive monitoring for toxicity (Heparin, Nitro, Insulin, Cardizem)? @ -No Were any procedures done? @ -No Diagnosis/symptom? Acute, or Chronic, or Acute on Chronic? Uncomplicated (without systemic symptoms) or Complicated (systemic symptoms)? @ -Facial contusion Side effects of treatment? @ -No Exacerbation, Progression, or Severe Exacerbation? @ -No Poses a threat to life or bodily function? How? (Chest pain, [place], [place], pneumonia, PE, COPD, DKA, ARF, appy, cholecystitis, CVA, Diverticulitis, Homicidal, Suicidal, threat to staff... and all critical care pts) @ -No - Lab Data Result diagrams: 01/14/25 08:04 01/14/25 08:04 Lab Results 01/14/25 01/14/25 01/14/25 Range/Units 08:04 08:04 08:04 WBC 6.01 (4.50-10.00) 10*3/uL RBC 4.47 (4.10-5.20) 10*6/uL Hgb 13.2 (12.0-15.0) g/dL Hct 39.0 (37.2-46.3) % MCV 87.2 (80.0-97.0) fL MCH 29.5 (27.0-32.0) pg MCHC 33.8 (32.0-37.0) g/dL Plt Count 228 (140-440) 10*3/uL MPV 11.5 (9.5-12.2) fL Immature Gran % (Auto) 0.2 % Neutrophils % 48.5 % Lymphocytes % 41.6 % Monocytes % 7.7 % Eosinophils % 1.5 % Basophils % 0.5 % Immature Gran # 0.01 (0.00-0.04) 10*3/uL Neutrophils # 2.92 (1.80-7.70) 10*3/uL Lymphocytes # 2.50 (0.90-5.00) 10*3/uL Monocytes # 0.46 (0.20-1.00) 10*3/uL Eosinophils # 0.09 (0.04-0.35) 10*3/uL Basophils # 0.03 (0.00-0.10) 10*3/uL Manual Slide Review Performed Immature Plt Fraction 8.4 H (1.1-6.1) % Sodium 139 (137-145) mmol/L Potassium 5.0 (3.5-5.1) mmol/L Chloride 108 H (98-107) mmol/L Carbon Dioxide 25 (22-30) mmol/L Anion Gap 6 mmol/L BUN 19 H (7-17) mg/dL Creatinine 0.59 (0.52-1.04) mg/dL Est GFR (CKD-EPI)AfAm >90 (>60 ml/min/1.73 sqM) Est GFR (CKD-EPI)NonAf >90 (>60 ml/min/1.73 sqM) Glucose 95 (74-99) mg/dL Calcium 8.9 (8.4-10.2) mg/dL Troponin I <0.012 (0.000-0.034) ng/mL Disposition Clinical Impression: Closed head injury Disposition: HOME SELF-CARE Condition: Good Instructions (If sedation given, give patient instructions): Syncope (ED) Is patient prescribed a controlled substance at d/c from ED?: No Referrals: Jarvis Rodríguez MD [Primary Care Provider] - 1-2 days Time of Disposition: 10:09
[2025-01-14] MEDS: SODIUM CHLORIDE 0.9% 1,000 ML IV STA (08:02)
[2025-01-14 08:23] LABS: Basophils # (A) 0.03 10*3/uL (0.00-0.10); Basophils % (A) 0.5 %; Eosinophils # (A) 0.09 10*3/uL (0.04-0.35); Eosinophils % (A) 1.5 %; HGB 13.2 g/dL (12.0-15.0); Immature Platelet Fraction 8.4 % (1.1-6.1); Lymphocytes % (A) 41.6 %; MCH 29.5 pg (27.0-32.0); MCHC 33.8 g/dL (32.0-37.0); MCV 87.2 fL (80.0-97.0); Mean Platelet Volume 11.5 fL (9.5-12.2); Monocytes # (A) 0.46 10*3/uL (0.20-1.00); Monocytes % (A) 7.7 %; Neutrophils # (A) 2.92 10*3/uL (1.80-7.70); Neutrophils % (A) 48.5 %; RBC 4.47 10*6/uL (4.10-5.20); RDW 13.5 % (11.5-14.5); WBC 6.01 10*3/uL (4.50-10.00)
--- NOTE | 2025-01-14 08:32 | CT ---
EXAMINATION TYPE: CT brain wo con DATE OF EXAM: 01/14/2025 COMPARISON: None CLINICAL INDICATION: Female, 34 years old with history of fall; PHH, Pt. reports hx of POTS- pt. stat es she passed out in the shower 2 days ago. Pt. c/o pain on right side of head that hasn't improved. TECHNIQUE: CT of the brain performed without contrast with sagittal and coronal reformats. CT DLP: Combined DLP of 1372.[address] CTDI: mGy Automated exposure control for dose reduction was used. FINDINGS: There is no acute intracranial hemorrhage, mass effect, or midline shift identified. The ventricles and sulci are within normal limits in size. The globes are intact and the visualized sinuses are ga ar. IMPRESSION: No acute intracranial hemorrhage, mass effect, or midline shift is seen. [facility], , 01/14/2025 8:29 AM
--- NOTE | 2025-01-14 08:34 | CT ---
EXAMINATION TYPE: CT facial bones wo con DATE OF EXAM: 01/14/2025 8:23 AM COMPARISON: None. CLINICAL INDICATION: Female, 34 years old with history of fall, Pt. reports hx of POTS- pt. states sh e passed out in the shower 2 days ago. Pt. c/o pain on right side of head that hasn't improved., pain TECHNIQUE: Unenhanced CT of the facial bones was performed in the axial and coronal planes. Bone and soft tissue window settings are submitted. CT DLP: Combined DLP of 1372.4 mGycm, Automated exposure control for dose reduction was used. Contrast used: mL of , (none if empty) FINDINGS: No significant soft tissue swelling is appreciated. I do not see evidence for displaced facial bone fracture or depressed facial bone fracture. The globes are intact. Paranasal sinuses are well-aerated. IMPRESSION: 1. No evidence for depressed or displaced facial bone fracture. [facility], , 01/14/2025 8:32 AM
[2025-01-14 08:51] LABS: African American GFR (CKD) >90 (>60 ml/min/1.73 sqM); Blood Urea Nitrogen 19 mg/dL (7-17); Carbon Dioxide 25 mmol/L (22-30); Chloride 108 mmol/L (98-107); Glucose 95 mg/dL (74-99); Non-African American GFR(CKD) >90 (>60 ml/min/1.73 sqM)
[2025-01-14 09:21] LABS: Anion Gap 6 mmol/L; Calcium 8.9 mg/dL (8.4-10.2); Sodium 139 mmol/L (137-145)
[2025-01-14 09:39] LABS: Platelet Count 228 10*3/uL (140-440)
[2025-01-14 10:44] VITALS: BP 112/89; PULSE 70; TEMP 98.8
== END 2025-01-14 10:48 | disposition home or self-care (01) ==
LOC: EC 07:02
DX: S09.90XA Unspecified injury of head, initial encounter (principal); W18.2XXA Fall in (into) shower or empty bathtub, initial encounter
CPT/HCPCS: 36415; 70450; 70486; 80048; 84484; 85025; 93005; 96360; 99284